=== PATIENT | female | born 1960 | race African-American/Black ===

== ENCOUNTER 2016-10-12 20:50 | Inpatient (IN) ==
[2016-10-12] MEDS ORDERED: MORPHINE IV ONE (21:13)
[2016-10-12] MEDS ORDERED: ZOFRAN IV ONE (21:13)
--- NOTE | 2016-10-12 21:19 | PROVIDER DOCUMENTATION ---
HPI-Abdominal Pain/GI Problem - General Chief Complaint: Abdominal Pain Stated Complaint: abd pain Time Seen by Provider: 10/12/16 21:03 Source: patient Allergies/Adverse Reactions: Patient Allergies Allergy/AdvReac Type Severity Reaction Status Date / Time No Known Allergies Allergy Verified 10/12/16 21:10 Home Medications: Home Medication List Medication Instructions Recorded Confirmed Last Taken Type Amlodipine Besylate 5 mg PO DAILY #30 tablet 09/30/15 10/12/16 Unknown Rx Clonidine HCl 0.1 mg PO TID PRN #30 tablet 09/30/15 10/12/16 Unknown Rx Lisinopril 10 mg PO DAILY #30 tablet 09/30/15 10/12/16 Unknown Rx Lisinopril 40 mg PO DAILY 09/30/15 10/12/16 09/30/15 History Tramadol [Ultram] 50 mg PO Q6H PRN PRN #20 tablet 09/30/15 10/12/16 10/12/16 Rx Docusate Sodium [Colace] 100 mg PO DAILY #10 capsule 10/10/16 10/12/16 Unknown Rx Magnesium Citrate [Citrate of 300 ml PO ONCE #1 bottle 10/10/16 10/12/16 Unknown Rx Magnesia] Meloxicam [Mobic] 15 mg PO DAILY #30 tablet 10/10/16 10/12/16 10/12/16 Rx - History of Present Illness-ABD Nature of Presenting Problems: Pt is 55 y/o F c chief complaint of acute onset epigastric pain that started several days ago but has become worse. Pt was seen at [facility] last night and told she had gas pain. Pt states the pain has significantly worsened today. Pt has had vomiting and is actively vomiting on arrival at the ER. Pt denies any diarrhea, constipation, dysuria. Pt has a h/o htn. On arrival, pt is vomiting. Review of Systems - Adult - REVIEW OF SYSTEMS - ADULT Constitutional: reports: no symptoms reported. denies: chills, fatique Eyes: reports: no symptoms reported. denies: blurred vision, double vision Ears, Nose, Mouth & Throat: reports: no symptoms reported. denies: ear pain, nose pain Cardiovascular: reports: no symptoms reported. denies: chest pain, orthopnea Respiratory: reports: no symptoms reported. denies: cough, shortness of breath Gastrointestinal: reports: see HPI, abdominal pain, nausea, vomiting Genitourinary: reports: no symptoms reported. denies: dysuria, flank pain Musculoskeletal: reports: no symptoms reported. denies: bone pain, joint pain, joint swelling Integumentary: reports: no symptoms reported. denies: itching, rash Neurological: reports: no symptoms reported. denies: numbness, paresthesia Psychiatric: reports: no symptoms reported. denies: anxiety, emotional problems Endocrine: reports: no symptoms reported. denies: cold intolerance, heat intolerance Hematologic/Lymphatic: reports: no symptoms reported. denies: blood clots, low blood count Allergic/Immunologic: reports: no symptoms reported. denies: allergic reactions , food allergy All Other Systems: Reviewed and Negative Past History - Adult - PAST MEDICAL HISTORY-ADULT Review of Records: reports: Old Records Reviewed, Nursing Assessment Review, Medications Reviewed, Social history reviewed & non-contributory. Major Childhood Illnesses: reports: denies history Cardiovascular: reports: HTN Respiratory: reports: denies history Gastrointestinal: reports: denies history Obstetrical/Gynecological: reports: denies history Genitourinary: reports: other (KIDNEY PROBLEMS PER PT) Musculoskeletal: reports: arthritis Neurological: reports: denies history Endocrine/Immune: reports: denies history Other Conditions: reports: denies history - PRIOR SURGERIES/PROCEDURES Surgical/Procedure History: reports: reviewed, not pertinent - IMMUNIZATION STATUS Childhood Immunizations: See Nurse Assessment Flu Vaccine: See Nurse Assessment - FAMILY HISTORY Family History: reviewed, not pertinent - SOCIAL HISTORY Smoking: denies Substance Use: none/never Alcohol Use Frequency: never Living Situation: family Physical Exam-General - PHYSICAL EXAM-ADULT Initial Vital Signs Reviewed: Yes - CONSTITUTIONAL General Appearance: alert, no apparent distress - EYES Eyes: PERRL/EOMI, pink conjunctivae - HEAD, EARS, NOSE, MOUTH & THROAT HENMT: normocephalic/atraumatic, moist mucous membranes, normal ENT inspection - NECK Neck: normal inspection - RESPIRATORY Respiratory: chest non-tender, lungs clear, normal breath sounds - CARDIOVASCULAR Cardiovascular: normal peripheral pulses, regular rate, rhythm - GASTROINTESTINAL (ABDOMEN) Abdominal Exam: soft, guarding, tenderness (epigastric). negative: rebound - LYMPHATIC Lymphatic: no adenopathy - MUSCULOSKELETAL Back Exam: normal inspection, no CVA tenderness, no vertebral tenderness Extremity: normal range of motion, non-tender, normal inspection - SKIN Integumentary: normal color, normal turgor, warm/dry - NEUROLOGIC Neurologic: grossly normal, no motor/sensory deficits - PSYCHIATRIC Psych/Mental Status: normal mood/affect, normal thought content, normal thought process, oriented x 3 Progress - PLAN OF CARE/RESULTS Progress/Plan/Lab Results: Orders Category Date Time Status Saline Loc DIRECTED Care 10/12/16 21:10 Active NPO Diet 10/12/16 21:10 Active AMYLASE [CHEM] Stat Lab 10/12/16 21:10 Uncollected CBC WITH ELECTRONIC DIFF [HEME] Stat Lab 10/12/16 21:10 Uncollected CK PROFILE [SP CHEM] Stat Lab 10/12/16 21:12 Uncollected COMPREHENSIVE METABOLIC PANEL [CHEM] Stat Lab 10/12/16 21:10 Uncollected LIPASE [CHEM] Stat Lab 10/12/16 21:10 Uncollected TEST-URINE [PREG] Stat Lab 10/12/16 21:11 Uncollected TROPONIN T Stat Lab 10/12/16 21:12 Uncollected URINALYSIS W/POSS RFLX CULT-1 [URINALYSIS] Stat Lab 10/12/16 21:10 Uncollected Morphine Med 10/12/16 21:13 Discontinued 4 mg IV NOW ONE Ondansetron [Zofran] Med 10/12/16 21:13 Discontinued 4 mg IV NOW ONE EKG [EKG] Stat Ther 10/12/16 21:12 Ordered Result Diagrams: 10/12/16 20:58 10/12/16 20:58 - REASSESSMENT Reassessment #1 Time Reassessed: 00:53 (Discussed c Dr. Yi (ER MD) who agreed c admission.) - CT/MRI 1 CT Study: Abdomen, Pelvis Impression: Abnormal (Soft tissue hypodensity within the gall bladder c mild surrounding fat stranding. Findings suggesting metastatic bladder cancer. Uterine fibroid. Small indeterminant myometerial L hypodensity - prelim radiology report) - CONSULTS/PCP/HOSPITALIST Notification #1 *Consult/PCP/Hospitalist*: Dr. Donovan (General Surgery) Time Discussed: 00:40 Reason/Comments: Agree c admit to Hospitalist. Will consult in morning. #2 Consult: Dr. Guerrero (Hospitalist) Time Discussed: 00:50 Reason/Comments: Agree c admission. Departure - Departure Time of Disposition Decision: 00:51 DIAGNOSIS: Malignant neoplasm metastatic from bladder Abdominal pain Qualifiers: Abdominal location: unspecified location Qualified Code(s): R10.9 - Unspecified abdominal pain Disposition: ADMITTED INPATIENT 09 Certified Medical Emergency: Emergent Condition: Stable Referrals and Follow-Ups: None,PCP [Primary Care Provider] - - Critical Care Note This patient required my direct & personal management of CC.: No Attestation - Physician/ KAYODE Attestation Patient care was provided by Advanced Practice Provider:: Yes Advanced Practice Provider:: Stu Guerrero Advanced Practice Provider documentation review:: The Mid-level provider documentation, treatment plan and medical decision making was reviewed by the physician who agrees with all treatment and medical decision making by the P.
[2016-10-12 21:20] LABS: MANUAL DIFF NEEDED? NO
[2016-10-12 21:27] LABS: BASO% 0.3 % (0.0-0.8); EOS# 0.18 X1000 (0.0-0.7); EOS% 1.6 % (0.0-10.0); HEMOGLOBIN 13.3 g/dL (12.0-16.0); IMM GRAN# 0.02 X1000 (0.0-0.04); IMM GRAN% 0.2 % (0.0-0.5); LYMPH# 3.02 X1000 (1.2-3.4); LYMPH% 26.5 % (20.5-51.1); MCH 31.7 PG (27-31); MCHC 34.1 g/dL (33-37); MCV 92.9 FL (81-99); MONO# 0.69 X1000 (0.11-0.59); MONO% 6.1 % (1.7-9.3); MPV 9.7 FL (7.4-10.4); NEUT% 65.3 % (42.2-75.2); PLT 368 X1000 (130-400)
[2016-10-12 21:41] LABS: AGAP 17; ALBUMIN 4.4 g/dL (3.5-5.0); ALKALINE PHOSPHATASE 128 U/L (32-104); AMYLASE 44 U/L (20-200); BUN 12 mg/dL (8-22); CALCIUM 9.4 mg/dL (8.8-10.2); CHLORIDE 95 mmol/L (98-107); CK PROFILE 172 U/L (24-173); COSMO 275; GOT 23 U/L (10-30); GPT 20 U/L (10-36); LIPASE 21 U/L (13-60); POTASSIUM 3.7 mmol/L (3.5-5.1); SODIUM 137 mmol/L (136-145); TCO2 25 mmol/L (25-35); TOTAL BILIRUBIN 0.38 mg/dL (0.20-1.00); TOTAL PROTEIN 9.4 g/dL (6.3-8.3)
[2016-10-12 22:53] LABS: URINE CULTURE NEEDED? NO; URINE MICRO REVIEW NEEDED? NO; URINE SOURCE CLEAN CATCH
[2016-10-12 22:54] LABS: BILIRUBIN URINE NEGATIVE (NEGATIVE); BLOOD URINE SMALL (NEGATIVE); COLOR YELLOW; GLUCOSE URINE NEGATIVE (NEGATIVE); LEUKOCYTES URINE NEGATIVE (NEGATIVE); NITRITE URINE NEGATIVE (NEGATIVE); PH URINE 5.5; PROTEIN URINE 100 mg/dL (NEGATIVE); SP GRAVITY URINE 1.022; TURBIDITY URINE CLEAR (CLEAR); UROBILINOGEN URINE NORMAL (NORMAL)
[2016-10-12 22:56] LABS: UR EPITHELIAL CELLS >10 /HPF (<10); URINE BACTERIA 1+ /HPF; URINE RBC <10 /HPF (<10); URINE WBC <10 /HPF (<10)
[2016-10-13] MEDS ORDERED: DILAUDID IV ONE (00:35)
[2016-10-13] MEDS ORDERED: LABETALOL IV ONE (00:48)
[2016-10-13] MEDS ORDERED: CATAPRES PO PRN (03:56)
[2016-10-13] MEDS ORDERED: ZOFRAN IV PRN (03:56)
--- NOTE | 2016-10-13 04:18 | HISTORY AND PHYSICAL ---
CHIEF COMPLAINT: Abdominal pain. HISTORY OF PRESENTING ILLNESS: A 55-year-old female without any significant past medical history presented to the emergency department with 2 days' history of abdominal pain. She states that it was more like a cramping sensation and she was very nauseated and vomited several times. She was evaluated in the ER. She had imaging done which did show suspicion for metastatic bladder cancer. Due to her presenting symptoms, patient will need hospitalization for further management. At the time of my examination, she had denied any headaches, vision changes, fevers, chills, chest pain, shortness of breath, hemoptysis, or any weight changes. PAST MEDICAL HISTORY: None. PAST SURGICAL HISTORY: None. ALLERGIES: No known drug allergies. CURRENT MEDICATIONS: None. SOCIAL HISTORY: She denies smoking, but admits to dipping snuff. No history of alcohol or illicit drug use. FAMILY HISTORY: No history of coronary disease. REVIEW OF SYSTEMS: Twelve point review of systems is listed as in HPI. Other systems negative. PHYSICAL EXAMINATION: GENERAL: Cooperative, friendly female. She is resting more comfortably now. VITAL SIGNS: Temperature 98.4 degrees, pulse 97, respiration 18, blood pressure 193/112. HEENT: Atraumatic, normocephalic. Extraocular movements intact. PERRLA. NECK: Supple. CHEST: Clear to auscultation. CARDIOVASCULAR: Regular rate and rhythm. ABDOMEN: Soft. Diffuse tenderness. EXTREMITIES: No edema. NEURO: She is awake, alert, oriented x3. : No bladder distention. SKIN: Warm. LABORATORIES AND STUDIES: WBC 11.38, hemoglobin 13.3, hematocrit 39.0, platelets 368,000. Sodium 137, potassium 3.7, chloride 95, CO2 25, BUN is 12, creatinine 0.6 glucose is 126. ASSESSMENT: A 55-year-old female without any significant past medical history had presented to the emergency department with 2 days' history of having abdominal pain. The patient had imaging done in the ER which was consistent with metastatic bladder cancer. Subsequently, patient will need hospitalization for further management. ASSESSMENT: 1. Abdominal pain. 2. Metastatic bladder cancer. 3. Hypertension, uncontrolled. PLAN: 1. We will admit patient to medical floor with telemetry. 2. Continue support treatment with IV fluids, antiemetics and pain control. 3. We will have Urology evaluation. 4. Monitor blood pressure. Resume antihypertensive agents. 5. Put patient on DVT prophylaxis with SCDs. 6. Continue to follow and reassess. cc: Samson Guerrero MD
[2016-10-13] MEDS: NS 1,000 ML IV SCH ×2 (04:29→20:37)
[2016-10-13] MEDS: MORPHINE IV PRN ×3 (06:25→20:33)
[2016-10-13] MEDS: PRINIVIL PO SCH (08:54)
[2016-10-13] MEDS ORDERED: NORVASC PO SCH (09:00)
[2016-10-13] MEDS: COLACE PO SCH (09:02)
--- NOTE | 2016-10-13 09:03 | Diag Imaging Result Doc PS360 ---
CT ABD/PELVIS W/ IV CONT ONLY - 10/12/2016 INDICATION: epigastric pain, active vomiting TECHNIQUE: A CT dose reduction protocol was used. COMPARISON: None FINDINGS: The lung bases are grossly clear and the heart size is normal. There is a large enhancing mass in the gallbladder lumen. This measures about 4.1 x 2.6 cm. There is probably mild invasion of the right lateral surface of the gallbladder fossa of the liver. There is also at least one liver metastasis, in the posterior right lobe. There are several suspicious enlarged periportal lymph nodes that are hypoenhancing. There are also some abnormally enlarged anterior phrenic lymph nodes adjacent to the liver surface. There are several omental masses anteriorly measuring up to about 3 cm. The gallbladder is somewhat distended, but there is no biliary dilation. The pancreas, adrenals, spleen, and kidneys are normal. Main portal vein is patent. There is a well-defined enhancing mass at the fundus of the uterus, indeterminate but most likely a uterine fibroid. Urinary bladder and rectum are normal. No bowel obstruction or inflammation. Normal appendix. There are moderate degenerative changes of the spine. No acute or suspicious bony lesion. IMPRESSION: 1. Advanced malignancy, probably arising from the gallbladder, involving the liver, periportal and perihepatic lymph nodes. There are also numerous omental masses. 2. Well-defined nodule in the uterus, most likely a uterine fibroid. Electronically signed by Joe Denis 10/13/2016 9:01 AM
--- NOTE | 2016-10-13 19:08 | CONSULTATION ---
DATE OF CONSULTATION: 10/13/2016 CHIEF COMPLAINT: Right upper quadrant pain. HISTORY: This is a 55-year-old black female who reports a 2-day history of abdominal pain. She denies any trouble with nausea. She has been eating satisfactorily. She says she does not have any significant weight loss. PAST MEDICAL HISTORY: Denies any other past medical history. PAST SURGICAL HISTORY: Denies any previous surgery. MEDICATIONS: Takes no scheduled medications. ALLERGIES: Has no known drug allergies. SOCIAL HISTORY: She denies smoking, denies alcohol usage. FAMILY HISTORY: Pertinent for coronary disease. REVIEW OF SYSTEMS: Negative except for abdominal pain. EXAM: Vital signs: She is afebrile, heart rate 90, respiratory 22, blood pressure 168/74. Neck: No cervical adenopathy. Lungs: Bilateral breath sounds. Heart: Regular rhythm. Abdomen: Soft. She is mildly tender in the right upper quadrant. No masses palpated. Extremities: No peripheral edema. Neuro: She is awake and alert. LABS: White count is 11,400, hemoglobin 13.3, hematocrit 39. Chemistry shows alkaline phosphatase of 128, LFTs are otherwise normal. CT scan suggests possible mass of the gallbladder, possible periportal adenopathy, possible omental metastases. PLAN: Will be to get ultrasound to further delineate the gallbladder before considering her for laparoscopy. cc: Obi Donovan MD
--- NOTE | 2016-10-13 19:29 | CONSULTATION ---
DATE OF CONSULTATION: 10/13/2016 HISTORY OF PRESENT ILLNESS: This patient was admitted through the emergency room with complaints of abdominal pain. While I was consulted for metastatic cancer of the urinary bladder, I believe she has metastatic cancer of the gallbladder to the lymph nodes and liver. The patient has no history suspicious for urinary bladder cancer. She is a tobacco user and has a very slight microscopic hematuria which certainly can be evaluated at some future date. ALLERGIES: None known. PAST MEDICAL HISTORY: Probable gallbladder cancer with metastasis, tobacco use history, the abdominal pain. PAST SURGERIES: None. MEDICATIONS: She came to the hospital unknown historic medications. SOCIAL HISTORY: She is a nonsmoker but uses snuff and continues to do so and has done some long- term. No alcohol history. No illicit drug use. FAMILY HISTORY: Is noncontributory to the source of admission. REVIEW OF SYSTEMS: Head and neck. Poor dental qualities. No heart trouble, no lung trouble. Recent abdominal pain on GI review. Musculoskeletal is negative and urologic is negative. PHYSICAL EXAM: Vitals: Reveal most recent temperature 98.4 degrees, pulse is 90, respiration 22, blood pressure 168/74, she does have some systolic hypertension. O2 saturations are 100% on room air. HEENT: She is with her family at this time. No visible head and neck lumps or masses. Extraocular muscles intact. The patient hears well . Heart: Has a regular rate regular. Lungs: Clear. No respiratory distress. Abdominal Exam: Right upper quadrant tenderness. DATA: Hydropic gallbladder on CT with mass noted in the gallbladder area, lymph node enlargement and a mass in the right lobe of liver apparent. While there is elevation of the floor of the urinary bladder I believe that is a normal extrinsic pressure that I see there but pursuant to that on her admission she did have a small amount of blood in the urine. We are certainly okay with evaluating that but the red cell count was less than 10, certainly I can see her in the office and recheck urinalysis if she is so inclined but at this point the more pressing matter at hand is her gallbladder and probably her life rate limiting step will be the gallbladder with and without cystoscopy in the future. IMPRESSION: So my impressions are that she has metastatic malignancy of the gallbladder to lymph nodes and liver as a most likely diagnosis. There is no history of urinary bladder cancer. She had a nominal amount of microhematuria seen on the dipstick but not evidenced on the red cell count and she has a history of tobacco use. PLAN: If the patient elects to do so I can do a cystoscopy in the office as an outpatient and invited her to followup there with me. I thank you for the consultation. cc: Adrian Merrill, DO
[2016-10-13] MEDS: NORVASC PO SCH (20:27)
--- NOTE | 2016-10-14 01:24 | ED EKG INTERP ---
This chart was entered by Jairo Walker Scribe, acting as scribe for Aditya Yi MD. EKG Interpretation - EKG Time of EKG reading by physician:: 21:50 EKG Read and Signed by:: Aditya Yi EKG Interpretation (*Must complete 3 of following elements*): Normal (No STEMI) Rate: 94 Rhythm: NSR This chart was documented by the indicated scribe, (Jairo Walker Scribe) and accurately reflects the services I performed and decisions made by me, Aditya Yi MD, as attested by the provider's signature.
[2016-10-14 06:23] LABS: MANUAL DIFF NEEDED? NO
[2016-10-14 06:27] LABS: BASO% 0.2 % (0.0-0.8); EOS# 0.08 X1000 (0.0-0.7); EOS% 0.7 % (0.0-10.0); IMM GRAN# 0.03 X1000 (0.0-0.04); IMM GRAN% 0.3 % (0.0-0.5); LYMPH# 2.65 X1000 (1.2-3.4); LYMPH% 24.2 % (20.5-51.1); MCH 31.7 PG (27-31); MCHC 33.3 g/dL (33-37); MONO# 0.82 X1000 (0.11-0.59); MONO% 7.5 % (1.7-9.3); MPV 9.5 FL (7.4-10.4); NEUT% 67.1 % (42.2-75.2); PLT 298 X1000 (130-400); RBC 3.79 XMIL (4.2-5.4)
[2016-10-14 06:42] LABS: AGAP 15; BUN 11 mg/dL (8-22); CHLORIDE 100 mmol/L (98-107); COSMO 280; POTASSIUM 3.6 mmol/L (3.5-5.1); SODIUM 141 mmol/L (136-145); TCO2 26 mmol/L (25-35)
--- NOTE | 2016-10-14 09:03 | Diag Imaging Result Doc PS360 ---
EXAM: US ABDOMEN-COMPLETE HISTORY: gallbladder mass TECHNIQUE: COMPARISON: A CT from 10/12/2016 FINDINGS: Normal pancreatic head and body. The pancreatic tail is obscured. Normal proximal aorta. The mid and distal aorta are obscured. Inferior vena cava is poorly seen. Hypodense area inferiorly in the right lobe of the liver is not identified on the ultrasound. There is a 3.7 x 4.9 cm mass within the gallbladder. The gallbladder wall is mildly thickened. The common bile duct measures 3 mm. Normal right kidney. No hydronephrosis. Normal spleen. No ascites. Normal left kidney. No hydronephrosis. IMPRESSION: Gallbladder mass highly suspicious for malignancy. Electronically signed by Harlan Vila 10/14/2016 9:01 AM
[2016-10-14] MEDS: COLACE PO SCH (09:53)
[2016-10-14] MEDS: PRINIVIL PO SCH (09:53)
[2016-10-14] MEDS: NORVASC PO SCH ×2 (09:54→20:39)
[2016-10-14] MEDS: NS 1,000 ML IV SCH (09:59)
--- NOTE | 2016-10-14 15:38 | PROGRESS NOTE ---
DATE: 10/14/2016 SUBJECTIVE: Patient reports feeling fine. No abdominal pain today. No nausea, vomiting. OBJECTIVE: Vital Signs: Temperature 98.8, heart rate 74, respiratory rate 14, blood pressure 155/54, O2 saturation 93% on room air. General: This is a 55-year-old, female lying in bed, in no acute distress. HEENT: Head is normocephalic, atraumatic. Anicteric sclerae and pale conjunctivae. Mucous membranes moist. Neck: Supple. No JVD noted. No carotid bruit. No lymphadenopathy. No thyromegaly. Cardiovascular: S1, S2 heard. No murmurs, gallops, or rubs. Regular rate and rhythm. Respiratory: Clear bilaterally to auscultation. No work of breathing or using accessory muscles. Abdomen: Soft, nontender to palpation. Bowel sounds present. No organomegaly. Extremities: No clubbing, cyanosis, or edema. Peripheral pulses present in both legs. Neurologic: Patient alert oriented x3. Moves 4 extremities. Cranial nerves 2-12 grossly normal. LABORATORY DATA: Reviewed CBC and BMP. ASSESSMENT AND PLAN: 1. Abdominal pain. 2. Metastatic-like cancer. 3. Gallbladder cancer. 4. Hypertension. PLAN: 1. Patient was admitted to the hospital because of abdominal pain and CT of the abdomen and pelvis did show this finding in the bladder, so also for right upper quadrant abdominal pain, an ultrasound of the abdomen was ordered, which basically shows the gallbladder cancer. At this point, what we are going to do is to consult Hematology/Oncology to what will be the next step in the management of this patient and to complete a workup for diagnosis. 2. Further recommendations to follow according to the clinical situation of the patient and input from subspecialty involved in the care of this patient. cc: Yusef Moore MD
[2016-10-15] MEDS: NS 1,000 ML IV SCH ×2 (03:46→03:49)
--- NOTE | 2016-10-15 07:59 | EKG Report ---
Test Performed on : 10/12/2016 9:50:50 PM Test Reason : EPIGASTRIC PAIN Blood Pressure : / mmHG Vent. Rate : 094 BPM Atrial Rate : 094 BPM P-R Int : 158 ms QRS Dur : 086 ms QT Int : 380 ms P-R-T Axes : 048 007 012 degrees QTc Int : 475 ms Normal sinus rhythm. Normal ECG When compared with ECG of 30-SEP-2015 15:33, Nonspecific T wave abnormality now evident in Inferior leads Unconfirmed Result
[2016-10-15] MEDS: NORVASC PO SCH ×2 (09:32→20:42)
[2016-10-15] MEDS: COLACE PO SCH (09:32)
[2016-10-15] MEDS: PRINIVIL PO SCH (09:32)
--- NOTE | 2016-10-15 10:22 | Diag Imaging Result Doc PS360 ---
EXAM: CT THORAX W/CONTRAST HISTORY: Gallbladder Mass, RUQ Pain TECHNIQUE: Dose reduction protocol COMPARISON: None. FINDINGS: No pleural effusions. No cardiomegaly. No thoracic aortic aneurysm or dissection. There are small mediastinal lymph nodes with several tiny calcified subcarinal and hilar lymph nodes. There are several scattered calcified granuloma. Minimal increased markings in the right middle lobe and lower lobes which may simply be atelectasis or fibrosis. No consolidation. No bronchiectasis. No lung mass identified. IMPRESSION: 1.Prior granulomatous infection 2.Minimal increased interstitial markings believed to be atelectasis or fibrosis Electronically signed by Harlan Vila 10/15/2016 10:20 AM
--- NOTE | 2016-10-15 14:02 | PROGRESS NOTE ---
DATE: 10/15/2016 SUBJECTIVE: The patient is feeling well. She has no complaint. No abdominal pain. Denies having any fever or chills. The patient was seen and examined lying comfortably in her bed. OBJECTIVE: Vital signs: Blood pressure 150/112, pulse of 72, respirations 14, temperature 98.6 degrees, saturating 91% in room air. General appearance: Obese black female in no acute distress. HEENT: Anicteric. Clear conjunctivae. Neck: Supple. No JVD. No bruit. Cardiovascular: S1, S2. Normal rate and rhythm. No murmur, rubs or gallops. Pulmonary: Clear to auscultation bilaterally. GI: Soft, nontender, nondistended. Normoactive bowel sounds. Musculoskeletal: No clubbing, cyanosis, or edema. LABORATORY: She does not have hematology or Chemistry today. ASSESSMENT AND PLAN: This is a 55-year-old admitted to the hospital for abdominal pain. CT scan showed a mass in her gallbladder. 1. Gallbladder mass concerning for malignancy. She has a mass in the liver. General surgery was consulted. They want to get an ultrasound to delineate the masses before they proceed with the laparoscopic cholecystectomy. Abdominal ultrasound that showed a gallbladder mass highly suspicious for malignancy. We are waiting for General surgery it to decide what to do next. Most likely, cholecystectomy with biopsy of the liver mass while in there but will defer to the General surgery to decide. If General surgery will be unable to do it, we will consider Interventional radiology to biopsy the liver for cytology. Oncology is also following. 2. Hypertension. Continue the patient on Norvasc and lisinopril. 3. Deep venous thrombosis prophylaxis. The patient is ambulating. Put her on SCDs for now. CODE STATUS: The patient is a full code.
--- NOTE | 2016-10-16 04:56 | HISTORY AND PHYSICAL ---
ADDENDUM: The patient was admitted for abdominal pain. I was given preliminary report of the CT scan by midlevel provider and I could not verify official radiology report at time of admission. However patient does not have any metastatic bladder cancer. However she does have advanced malignancy arising from the gallbladder. PLAN: As listed in the previous H and P. cc: Samson Guerrero MD MTDD
[2016-10-16 06:00] LABS: MANUAL DIFF NEEDED? NO
[2016-10-16 06:12] LABS: BASO% 0.2 % (0.0-0.8); EOS# 0.18 X1000 (0.0-0.7); EOS% 1.7 % (0.0-10.0); HEMATOCRIT 34.3 % (37.0-47.0); HEMOGLOBIN 11.6 g/dL (12.0-16.0); IMM GRAN# 0.03 X1000 (0.0-0.04); IMM GRAN% 0.3 % (0.0-0.5); LYMPH# 3.21 X1000 (1.2-3.4); LYMPH% 29.4 % (20.5-51.1); MCH 31.6 PG (27-31); MCHC 33.8 g/dL (33-37); MCV 93.5 FL (81-99); MONO# 0.74 X1000 (0.11-0.59); MONO% 6.8 % (1.7-9.3); MPV 9.5 FL (7.4-10.4); NEUT% 61.6 % (42.2-75.2); PLT 319 X1000 (130-400); RBC 3.67 XMIL (4.2-5.4)
[2016-10-16 07:03] LABS: AGAP 12; BUN 7 mg/dL (8-22); CALCIUM 8.8 mg/dL (8.8-10.2); CHLORIDE 101 mmol/L (98-107); COSMO 279; POTASSIUM 3.7 mmol/L (3.5-5.1); SODIUM 141 mmol/L (136-145); TCO2 28 mmol/L (25-35)
[2016-10-16] MEDS: PRINIVIL PO SCH (09:19)
[2016-10-16] MEDS: COLACE PO SCH (09:19)
[2016-10-16] MEDS: NORVASC PO SCH ×2 (09:19→21:05)
--- NOTE | 2016-10-16 09:45 | PROGRESS NOTE ---
DATE: 10/16/2016 SUBJECTIVE: The patient is feeling well. She ready to go home. She is scheduled for the endoscopy with possible ERCP today. No fever. No chills. No nausea, vomiting, or diarrhea. No abdominal pain. OBJECTIVE: Vital Signs: Blood pressure 129/68, pulse of 72, respirations 20, temperature 98.1 degrees, saturation 97%. General Appearance: Obese, black female in no acute distress. HEENT: Anicteric sclerae. Clear conjunctivae. Neck: Supple. No JVD. No bruits. Cardiovascular: S1 and S2. Normal rate and rhythm. No murmur, rubs, or gallops. Pulmonary: Clear to auscultation bilaterally. GI: Soft, nontender, nondistended. Normoactive bowel sounds. Musculoskeletal: No clubbing, cyanosis, or edema. Laboratory: For today, white count of 10.9, hemoglobin 11.6, hematocrit of 34.3, platelets of 319,000. Chemistry: Sodium 141, potassium of 3.7, chloride 101, bicarb 28, BUN 7, creatinine 0.6, glucose of 88. ASSESSMENT AND PLAN: This is a 55-year-old, black female admitted to the hospital for abdominal pain and was found to have a mass in her gallbladder. 1. Gallbladder mass. General surgery is following. They are probably going to go in to do the ERCP or an endoscopy today with trying to get a tissue biopsy. Oncology is also following. We will continue to follow the results and recommendations from the consultants mentioned. 2. Hypertension. We will continue Norvasc and lisinopril. 3. Code status. The patient is a full code.
[2016-10-16] MEDS ORDERED: PEPCID ONE (16:20)
[2016-10-16] MEDS ORDERED: LR 0 ML ONE (16:22)
[2016-10-16] MEDS ORDERED: MARCAINE 0.25% PF/EPI 1:200,000 ONE (16:22)
[2016-10-16] MEDS ORDERED: SODIUM CHLORIDE 0.9% ONE (16:22)
--- NOTE | 2016-10-16 16:50 | CONSULTATION ---
DATE OF CONSULTATION: 10/15/2016 REFERRING PHYSICIAN: Dr. Davies. REASON FOR REFERRAL: Gallbladder mass suspicious for malignancy. HISTORY OF PRESENT ILLNESS: Ms. Lupe Cordon is a very pleasant 55-year-old woman with a past medical history of hypertension who presented to [facility] ER with complaints of right upper quadrant pain for the past 2 days. She states that she initially took 2 Aleve which relieved the pain but it returned and she decided to come to the ER for further evaluation. Upon further workup, she was found to have a mass on her gallbladder highly suspicious for malignancy. Dr. Donovan has been consulted for further recommendations. Hematology/Oncology service was placed on consult to provide further workup and treatment options. PAST MEDICAL HISTORY: Hypertension. PAST SURGICAL HISTORY: None. FAMILY HISTORY: The patient reports her mother of cancer but she is unsure which type. SOCIAL HISTORY: The patient reports dipping snuff but denies smoking, alcohol or illicit drug use. ALLERGIES: No known drug allergies. MEDICATIONS: As per medication sheet. REVIEW OF SYSTEMS: As per HPI. Otherwise, a 12-point review of systems was negative. PHYSICAL EXAMINATION: General: The patient appears to be in no apparent distress. Vital Signs: Blood pressure 150/112, pulse 72, respirations 14, temperature 98.6 degrees Fahrenheit, O2 saturation 91% on room air. HEENT: Head normocephalic, atraumatic. Mucosa is pink and moist. Pupils reactive to light. Oropharynx clear. Neck: Supple. No lymphadenopathy or thyromegaly. Cardiovascular: S1, S2. Regular rate and rhythm. No murmurs noted. Respiratory: Breath sounds clear to auscultation bilaterally. No rhonchi, rales or wheezing noted. Abdomen: Soft, nontender, nondistended. Positive for bowel sounds. Extremities: No evidence of edema, DVT or cyanosis. Skin: No rashes or lesions noted. Neurological: No focal neurologic deficits. ASSESSMENT: Right upper quadrant pain with gallbladder mass suspicious for malignancy. PLAN: 1. We will obtain a CT of the chest for further staging. We will also obtain a CA-19-[address] Donovan has been consulted and we are awaiting his recommendations. Further recommendations will depend on the results of the above workup. 2. Hypertension. We agree with placing the patient on antihypertensive as per the hospitalist. Further workup and treatment options will depend upon the patient's hospital course as well as response to current therapy. Thank you for this consult and allowing us to take part in the care this patient. We will follow along with you. Dictated by ADARSH Brandon for Jessica Ambrosio MD cc: Jessica Ambrosio MD
--- NOTE | 2016-10-16 17:49 | OPERATIVE NOTE ---
PROCEDURE DATE: 10/16/2016 PROCEDURE: Diagnostic laparoscopy with biopsy of omental mass and biopsy of the peritoneum. SURGEON: Obi Donovan MD. RN INFUSION: Sil. PREOPERATIVE DIAGNOSIS: Possible metastatic disease. POSTOP DIAGNOSIS: Possible metastatic disease. INDICATIONS: This is a 55-year-old black female who presents with right upper quadrant pain. CT suggests a mass in the gallbladder with possible metastasis in the omentum and even in the right lobe of the liver. She now presents for diagnostic laparoscopy for biopsy. DESCRIPTION OF PROCEDURE: Satisfactory general endotracheal anesthesia was achieved. The abdomen was prepped and draped in a sterile fashion. We anesthetized the skin at the umbilicus, made a small incision there, and introduced the 5 trocar into the abdominal cavity. We insufflated through this trocar. This was done under direct visualization. We introduced another 5 trocar in the left upper quadrant, another 5 trocar in the left mid abdomen. We noticed an omental mass that we are able to biopsy with biopsy forceps. We identified another mass more medial toward the falciform ligament. We identified the omentum being stuck to the fundus of the gallbladder which we did not separate because it was intimately attached. We also identified what appeared to be a peritoneal implant which we did biopsy. We felt this represented metastatic disease did not feel that any further resection was indicated. We got biopsies for diagnostic purposes. We then desufflated and removed our trocars. We closed the skin at each incision with 4-0 Polysorb subcuticular stitches. Sterile OpSite were applied. She tolerated it well. Was sent to the recovery room in satisfactory condition. cc: Obi Donovan MD
[2016-10-16] MEDS ORDERED: ZOFRAN ONE (17:51)
[2016-10-16] MEDS ORDERED: DIPRIVAN 1% ONE (17:51)
[2016-10-16] MEDS ORDERED: FENTANYL ONE ×2 (17:51)
[2016-10-17] MEDS: MORPHINE IV PRN ×2 (03:11→13:55)
[2016-10-17 06:40] LABS: MANUAL DIFF NEEDED? NO
[2016-10-17 06:48] LABS: BASO% 0.2 % (0.0-0.8); EOS# 0.13 X1000 (0.0-0.7); EOS% 1.3 % (0.0-10.0); HEMATOCRIT 32.9 % (37.0-47.0); LYMPH# 2.81 X1000 (1.2-3.4); LYMPH% 27.3 % (20.5-51.1); MCH 31.3 PG (27-31); MCHC 33.4 g/dL (33-37); MCV 93.7 FL (81-99); MONO# 0.68 X1000 (0.11-0.59); MONO% 6.6 % (1.7-9.3); MPV 9.3 FL (7.4-10.4); NEUT% 64.6 % (42.2-75.2); PLT 344 X1000 (130-400); RBC 3.51 XMIL (4.2-5.4)
[2016-10-17 07:08] LABS: AGAP 14; BUN 6 mg/dL (8-22); CALCIUM 8.6 mg/dL (8.8-10.2); CHLORIDE 100 mmol/L (98-107); COSMO 276; POTASSIUM 3.7 mmol/L (3.5-5.1); SODIUM 140 mmol/L (136-145); TCO2 26 mmol/L (25-35)
[2016-10-17] MEDS: COLACE PO SCH (09:24)
[2016-10-17] MEDS: NORVASC PO SCH (09:24)
[2016-10-17] MEDS: PRINIVIL PO SCH (09:24)
[2016-10-17] MEDS ORDERED: ROBINUL ONE (09:35)
[2016-10-17] MEDS ORDERED: QUELICIN (DOSE) ONE (09:35)
[2016-10-17] MEDS ORDERED: LABETALOL (DOSE) ONE (09:35)
[2016-10-17] MEDS ORDERED: NEOSTIGMINE ONE (09:35)
[2016-10-17] MEDS ORDERED: ZEMURON ONE (09:35)
[2016-10-17] MEDS ORDERED: REGLAN ONE (09:35)
[2016-10-17] MEDS ORDERED: XYLOCAINE-MPF 2% ONE (09:35)
[2016-10-17] MEDS ORDERED: LR 1,000 ML ONE (09:36)
[2016-10-17 13:11] VITALS: BP 143/74
--- NOTE | 2016-10-17 13:11 | PROGRESS NOTE ---
DATE: 10/17/2016 SUBJECTIVE: The patient is feeling well. She has no complaint. No nausea and no vomiting. She had the exploratory laparotomy yesterday for biopsy of omentum. No bleeding, tolerating clear. OBJECTIVE: Vital Signs: Blood pressure 126/67, pulse of 76, respirations 20, temperature 98.2 degrees, saturating 95% room air. General Appearance: Well-developed, well-nourished black female in no acute distress. HEENT: Anicteric. Clear conjunctivae. Neck: Supple. No JVD. No bruit. Cardiovascular: S1, S2. Normal rate and rhythm. No murmur, rubs, or gallops. Pulmonary: Clear to auscultation bilaterally. GI: Soft, nontender, and nondistended. Bandage in the place where the incisions were. Extremities: No clubbing, cyanosis, or edema. LABORATORY: White count 10.29, hemoglobin 11.10, hematocrit 32.9, platelets 344,000. Chemistry 140, potassium 3.7, chloride 100, bicarbonate 26, BUN 6, creatinine 0.6, and glucose of 89. ASSESSMENT AND PLAN: This is a 56-year-old admitted to the hospital for what appeared to be a gallbladder mass. Apparently it is on the outside of the gallbladder. The mass was in omentum that sticks to the gallbladder per the exploratory laparoscopy report by Dr. Donovan. Biopsy was done. The patient tolerated the procedure well. Oncology is following. CA-19-9 was normal. Biopsy still pending. The patient is doing well. Advance her diet. We will discharge the patient home and have her follow with Dr. Ambrosio of Oncology, with the biopsy result. The patient can go home today.
--- NOTE | 2016-10-17 16:37 | DISCHARGE SUMMARY ---
ADMISSION DATE: 10/13/2016 DISCHARGE DATE: 10/17/2016 CONSULTATIONS: 1. Obi Donovan MD with General Surgery. 2. Adrian Merrill DO with Urology. PERTINENT PROCEDURES: 1. Abdominopelvic CT showed advanced malignancy probably arising from the gallbladder involving the liver, perihepatic lymph nodes and numerous omental masses. Well- defined nodule in the uterus most likely a uterine fibroid. 2. Chest CT showed prior granulomatosis infection, minimal increased interstitial markings believed to be atelectasis and/or fibrosis. DIAGNOSTIC: 1. Laparoscopy with biopsy of omental mass and biopsy of the peritoneum performed by Dr. Obi Donovan. 2. Abdominal ultrasound showed gallbladder mass highly suspicious for malignancy. DISCHARGE DIAGNOSES: 1. Gallbladder mass status post laparoscopic biopsy performed by Dr. Obi Donovan. Followed by Dr. Jessica Ambrosio. Biopsy results are still pending. Her CA 19-9 was normal. 2. Hypertension. Continue Norvasc and lisinopril. HOSPITAL COURSE: Ms. Cordon is a 55-year-old female who carries a past medical history of hypertension presented to the emergency room with 2 days of abdominal pain. She states it was a cramping sensation. She was very nauseated and vomited several times. She was evaluated in the ED. Imaging was done which was suspicious for metastatic gallbladder cancer. The patient was admitted to the medical floor and continued with supportive treatment with IV fluids, antiemetics and pain control, with a consultation for General Surgery as well as Hematology/ Oncology. She did undergo a laparoscopic biopsy. Apparently it was on the outside of the gall bladder. The mass was in the omentum that sticks to the gallbladder. Per Dr. Donovan's report, a biopsy was done and is still pending. The patient tolerated the procedure well. Her CA 19-9 was normal. The patient clinically was doing well. Her diet was advanced. She will be discharged home to follow up with Dr. Ambrosio with Oncology for her biopsy results. The patient can return to the ED for any worsening of symptoms. DISCHARGE TIME: 30 minutes. Dictated by ADARSH Centeno for Luis Miguel Zabala MD Addendum: I personally evaluated and examined the patient in conjunction to the [employer] and agreed with his assessments and disposition [facility]ITAL[facility]
== END 2016-10-17 17:51 | disposition home or self-care (01) ==
LOC: ED 20:50 → 3N 10-13 03:31 → SUATTDRO 10-13 03:31 → 3N 10-13 03:50
PROVIDERS: ATTEND Internal Medicine

== ENCOUNTER 2016-11-03 20:06 | Inpatient (IN) ==
[2016-11-03 20:48] LABS: MANUAL DIFF NEEDED? NO
[2016-11-03 21:01] LABS: BASO% 0.2 % (0.0-0.8); EOS# 0.14 X1000 (0.0-0.7); EOS% 0.9 % (0.0-10.0); HEMATOCRIT 35.9 % (37.0-47.0); HEMOGLOBIN 12.1 g/dL (12.0-16.0); IMM GRAN# 0.07 X1000 (0.0-0.04); IMM GRAN% 0.5 % (0.0-0.5); LYMPH# 1.98 X1000 (1.2-3.4); LYMPH% 13.4 % (20.5-51.1); MCH 30.5 PG (27-31); MCHC 33.7 g/dL (33-37); MCV 90.4 FL (81-99); MONO# 0.86 X1000 (0.11-0.59); MONO% 5.8 % (1.7-9.3); MPV 9.9 FL (7.4-10.4); NEUT% 79.2 % (42.2-75.2); PLT 389 X1000 (130-400); RBC 3.97 XMIL (4.2-5.4)
[2016-11-03 21:10] LABS: AGAP 17; ALBUMIN 3.1 g/dL (3.5-5.0); ALKALINE PHOSPHATASE 463 U/L (32-104); AMYLASE 34 U/L (20-200); BUN 7 mg/dL (8-22); CALCIUM 9.3 mg/dL (8.8-10.2); CHLORIDE 95 mmol/L (98-107); COSMO 275; GOT 115 U/L (10-30); GPT 147 U/L (10-36); LIPASE 25 U/L (13-60); POTASSIUM 3.4 mmol/L (3.5-5.1); SODIUM 138 mmol/L (136-145); TCO2 26 mmol/L (25-35); TOTAL BILIRUBIN 6.49 mg/dL (0.20-1.00); TOTAL PROTEIN 7.9 g/dL (6.3-8.3)
[2016-11-03] MEDS ORDERED: ZOFRAN IV ONE (21:34)
[2016-11-03] MEDS ORDERED: MORPHINE IV ONE (21:34)
--- NOTE | 2016-11-03 21:40 | PROVIDER DOCUMENTATION ---
HPI-Abdominal Pain/GI Problem - General Chief Complaint: Abdominal Pain Stated Complaint: RLQ abd pain Time Seen by Provider: 11/03/16 20:13 Source: patient Allergies/Adverse Reactions: Patient Allergies Allergy/AdvReac Type Severity Reaction Status Date / Time No Known Allergies Allergy Verified 11/03/16 20:43 Home Medications: Home Medication List Medication Instructions Recorded Confirmed Last Taken Type Amlodipine Besylate 5 mg PO DAILY #30 tablet 09/30/15 10/26/16 Unknown Rx Clonidine HCl 0.1 mg PO TID PRN #30 tablet 09/30/15 10/26/16 Unknown Rx Lisinopril 40 mg PO DAILY 09/30/15 10/26/16 09/30/15 History Meloxicam [Mobic] 15 mg PO DAILY #30 tablet 10/10/16 10/26/16 10/12/16 Rx Tramadol [Ultram] 50 mg PO Q6H PRN PRN #20 tablet 10/17/16 10/26/16 Unknown Rx Hydrocodone/Acetaminophen [[place] 1 each PO Q4-6H PRN PRN #20 tablet 10/26/16 Unknown Rx 10-325 Tablet] Promethazine [Phenergan] 25 mg PO Q6H PRN PRN #20 tablet 10/26/16 Unknown Rx - History of Present Illness-ABD Nature of Presenting Problems: 56 y/o BF presents to the ED with c/o abd. pain x 2 weeks. Pt has been seen for this before, but states worse today. States lower abdominal pain. Denies any nausea/vomiting/diarrhea. States unable to eat. Pain is 10/10 and does not radiate. Hx of adenocarcinoma, and has not followed up with Dr. Ambrosio for further evaluation. Review of Systems - Adult - REVIEW OF SYSTEMS - ADULT Constitutional: reports: no symptoms reported. denies: chills, fever Eyes: reports: no symptoms reported. denies: blurred vision, double vision Ears, Nose, Mouth & Throat: reports: no symptoms reported. denies: ear pain, nose pain Cardiovascular: reports: no symptoms reported. denies: chest pain, palpitations Respiratory: reports: no symptoms reported. denies: dyspnea on exertion, shortness of breath Gastrointestinal: reports: see HPI, abdominal pain, poor appetite. denies: constipation, diarrhea, nausea, vomiting Genitourinary: reports: no symptoms reported. denies: dysuria, frequency, flank pain Musculoskeletal: reports: no symptoms reported. denies: joint pain, joint swelling Integumentary: reports: no symptoms reported. denies: nail changes, rash Neurological: reports: no symptoms reported. denies: numbness, paresthesia Psychiatric: reports: no symptoms reported Endocrine: reports: no symptoms reported. denies: cold intolerance, heat intolerance Hematologic/Lymphatic: reports: no symptoms reported. denies: easy bruising, prolonged bleeding Allergic/Immunologic: reports: no symptoms reported All Other Systems: Reviewed and Negative Past History - Adult - PAST MEDICAL HISTORY-ADULT Review of Records: reports: Nursing Assessment Review, Medications Reviewed Major Childhood Illnesses: reports: denies history Cardiovascular: reports: HTN Respiratory: reports: denies history Gastrointestinal: reports: cancer (recent dx of adenocarcinoma) Obstetrical/Gynecological: reports: denies history Genitourinary: reports: other (KIDNEY PROBLEMS PER PT) Musculoskeletal: reports: arthritis Neurological: reports: denies history Endocrine/Immune: reports: denies history Other Conditions: reports: denies history - PRIOR SURGERIES/PROCEDURES Surgical/Procedure History: reports: recent surgery (laproscopic of omentum peritoneum) - IMMUNIZATION STATUS Childhood Immunizations: See Nurse Assessment Flu Vaccine: See Nurse Assessment - FAMILY HISTORY Family History: reviewed, not pertinent - SOCIAL HISTORY Smoking: denies Physical Exam-General - PHYSICAL EXAM-ADULT Initial Vital Signs Reviewed: Yes - CONSTITUTIONAL General Appearance: alert, moderate distress, obese - EYES Eyes: pink conjunctivae - HEAD, EARS, NOSE, MOUTH & THROAT HENMT: normocephalic/atraumatic, moist mucous membranes - NECK Neck: normal inspection - RESPIRATORY Respiratory: lungs clear, normal breath sounds. negative: crackles, rales, rhonchi, stridor, wheezing - CARDIOVASCULAR Cardiovascular: regular rate, rhythm. negative: bradycardia, tachycardia - GASTROINTESTINAL (ABDOMEN) Abdominal Exam: soft, tenderness (generalized, worse in lower abdomen). negative: normal bowel sounds (decreased), distended, guarding, rigid, Mahoney's sign - MUSCULOSKELETAL Back Exam: normal inspection, no CVA tenderness Extremity: normal range of motion - SKIN Integumentary: normal color, normal turgor - NEUROLOGIC Neurologic: negative: aphasia - PSYCHIATRIC Psych/Mental Status: normal mood/affect, normal thought content, normal thought process, oriented x 3 Progress - PLAN OF CARE/RESULTS Progress/Plan/Lab Results: Vital Signs - 8 hr 11/03/16 20:07 Temperature 98.6 F Pulse Rate 98 H Respiratory Rate 20 Blood Pressure 182/112 O2 Sat by Pulse Oximetry 100 Laboratory Results - last 24 hr 11/03/16 11/03/16 20:35 20:35 WBC 14.78 H RBC 3.97 L Hgb 12.1 Hct 35.9 L MCV 90.4 MCH 30.5 MCHC 33.7 RDW Std Deviation 11.9 Plt Count 389 MPV 9.9 Immature Gran % (Auto) 0.5 Neut % (Auto) 79.2 H Lymph % (Auto) 13.4 L Coleman % (Auto) 5.8 Eos % (Auto) 0.9 Baso % (Auto) 0.2 Immature Gran # (Auto) 0.07 H Neut # (Auto) 11.70 H Lymph # (Auto) 1.98 Coleman # (Auto) 0.86 H Eos # (Auto) 0.14 Baso # (Auto) 0.03 Sodium 138 Potassium 3.4 L Chloride 95 L Carbon Dioxide 26 Anion Gap 17 BUN 7 L Creatinine 0.7 Estimated GFR/1.73 m2 > 60 BUN/Creatinine Ratio 10 Glucose 123 H Calculated Osmolality 275 Calcium 9.3 Total Bilirubin 6.49 H AST 115 H ALT 147 H Alkaline Phosphatase 463 H Total Protein 7.9 Albumin 3.1 L Globulin 4.8 Albumin/Globulin Ratio 0.6 Amylase 34 Lipase 25 Orders Category Date Time Status Saline Loc DIRECTED Care 11/03/16 20:25 Active NPO Diet 11/03/16 20:[address] ABD/PELVIS W/ IV CONT ONLY [CT] Stat Exams 11/03/16 21:34 Ordered AMYLASE [CHEM] Stat Lab 11/03/16 20:35 Completed CBC WITH ELECTRONIC DIFF [HEME] Stat Lab 11/03/16 20:35 Completed COMPREHENSIVE METABOLIC PANEL [CHEM] Stat Lab 11/03/16 20:35 Completed LIPASE [CHEM] Stat Lab 11/03/16 20:35 Completed URINALYSIS W/POSS RFLX CULT-1 [URINALYSIS] Stat Lab 11/03/16 20:25 Uncollected Morphine Med 11/03/16 21:34 Discontinued 4 mg IV NOW ONE Ondansetron [Zofran] Med 11/03/16 21:34 Discontinued 4 mg IV NOW ONE Result Diagrams: 11/03/16 20:35 11/03/16 20:35 - CT/MRI 1 CT Study: Abdomen, Pelvis Impression: See EMR Report (1. Progression of metastatic disease likely from gallbladder cancer. -per Dr. Garrison ([facility] - CONSULTS/PCP/HOSPITALIST Notification #1 *Consult/PCP/Hospitalist*: Dr. Guerrero Time Discussed: 00:00 Reason/Comments: zheng hepatis, gallbladder CA with mets, ascites Consult Disposition: Admit Departure - Departure Date of Disposition Decision: 11/04/16 Time of Disposition Decision: 00:01 DIAGNOSIS: Adenocarcinoma Abdominal pain Qualifiers: Abdominal location: unspecified location Qualified Code(s): R10.9 - Unspecified abdominal pain Ascites Qualifiers: Ascites type: other type Qualified Code(s): R18.8 - Other ascites Disposition: ADMITTED INPATIENT 09 Certified Medical Emergency: Emergent Condition: Stable Referrals and Follow-Ups: None,PCP [Primary Care Provider] - - Critical Care Note This patient required my direct & personal management of CC.: No Attestation - Physician/ KAYODE Attestation Patient care was provided by Advanced Practice Provider:: Yes Advanced Practice Provider:: Stephanie Kennedy Advanced Practice Provider documentation review:: The Mid-level provider documentation, treatment plan and medical decision making was reviewed by the physician who agrees with all treatment and medical decision making by the MLP.
[2016-11-04] MEDS ORDERED: ZOFRAN IV ONE (00:45)
[2016-11-04] MEDS ORDERED: NS 1,000 ML IV ONE (00:45)
[2016-11-04] MEDS ORDERED: MORPHINE IV ONE (00:45)
[2016-11-04 01:08] LABS: URINE CULTURE NEEDED? NO; URINE SOURCE CLEAN CATCH
[2016-11-04 01:11] LABS: BILIRUBIN URINE MODERATE (NEGATIVE); BLOOD URINE TRACE (NEGATIVE); COLOR YELLOW; GLUCOSE URINE NEGATIVE (NEGATIVE); LEUKOCYTES URINE NEGATIVE (NEGATIVE); NITRITE URINE NEGATIVE (NEGATIVE); PROTEIN URINE 50 mg/dL (NEGATIVE); TURBIDITY URINE CLEAR (CLEAR); UROBILINOGEN URINE 6 mg/dL (NORMAL)
[2016-11-04 01:12] LABS: URINE MICRO REVIEW NEEDED? YES
[2016-11-04 01:21] LABS: UR EPITHELIAL CELLS <10 /HPF (<10); URINE BACTERIA NEGATIVE /HPF; URINE RBC <10 /HPF (<10); URINE WBC <10 /HPF (<10)
[2016-11-04 01:23] LABS: SP GRAVITY URINE > 1.030
[2016-11-04 01:24] LABS: URINE CASTS NONE SEEN; URINE CRYSTALS NONE SEEN; URINE SMALL ROUND CELLS NONE SEEN
[2016-11-04] MEDS ORDERED: POTASSIUM CHLORIDE 20 MEQ/SWI 20 MEQ/100 ML IVPB IV ONE (02:36)
[2016-11-04 02:37] LABS: INR 1.16; PROTIME 12.3 Seconds (9.2-11.7); PTT 30.8 Seconds (22.0-36.0)
[2016-11-04] MEDS ORDERED: NS 1,000 ML IV SCH (02:56)
[2016-11-04] MEDS: PROTONIX IV SCH (03:09)
[2016-11-04] MEDS: SODIUM CHLORIDE 0.9% INJ SCH (03:09)
[2016-11-04] MEDS ORDERED: MIRALAX PO PRN (04:04)
[2016-11-04] MEDS: MORPHINE IV PRN ×4 (04:26→23:17)
[2016-11-04] MEDS: NORVASC PO SCH ×2 (04:27→10:01)
--- NOTE | 2016-11-04 05:58 | HISTORY AND PHYSICAL ---
DATE AND TIME OF HISTORY AND PHYSICAL: 11/04/2016 at 01:00. ONCOLOGIST: Dr. Ambrosio. CHIEF COMPLAINT: Nausea, vomiting and abdominal pain. HISTORY OF PRESENT ILLNESS: Ms Cordon is a 56-year-old female who presented to the ER [facility] with complaints of abdominal pain, decreased appetite and some nausea and vomiting. She was recently admitted to the hospital and was discharged on 10/17/2016. During this admission she was initially admitted for similar symptoms. 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 She was discharged and was supposed to follow up with Dr. Ambrosio. The patient states at this time she has not had her appointment yet for follow up with Dr. Ambrosio. She states that for 2 weeks she has had a decreased appetite. She complains of abdominal pain in the right upper quadrant, epigastric area as well as lower abdomen just inferior to the umbilicus. She describes this pain as a sharp type pain that is intermittent. She states that bending over or pulling her knees up to her chest does make the pain slightly better as well as pain medicines. She states that she has not been unable to keep any food or fluids down. Everything she eats comes right back up. She denies any hematemesis. She also denies any diarrhea though states that she is constipated and her last bowel movement was approximately 1 week ago though denies any previous symptoms of hematochezia or melena. She denies any fever or body aches but states that she may have had chills because she has had hot and cold spells. She denies any dizziness, headaches, chest pain, shortness of breath, dysuria or urinary frequency. She denies any pain, numbness or tingling in extremities though does report some intermittent swelling in her bilateral ankles. Upon evaluation in the ER, the patient was found to have abdominal pain as reported. She was also found to have some mild leukocytosis with a white blood cell count of 14.78. Along with this, her liver enzymes were elevated. A CT abdomen and pelvis was obtained which did show that the patient has progression of metastatic disease likely from gallbladder cancer. The patient did have a most recent CT abdomen and pelvis on 10/12/2016 which showed advanced malignancy probably arising from the gallbladder involving the liver and periportal and perihepatic lymph nodes. There are also numerous omental masses as well. The CT that she had performed tonight does show previous findings as mentioned as well as now her gallbladder mass is extending into the pancreas as well. We will admit the patient at this time for further treatment and evaluation of her metastatic gallbladder cancer as well as her nausea, vomiting and mild fluid depletion. REVIEW OF SYSTEMS: A 12 point review of systems was conducted with the patient and all were negative except for pertinent positives mentioned in above HPI. PAST MEDICAL HISTORY: 1. Hypertension. 2. Hyperlipidemia. 3. Anxiety. 4. Depression. PAST SURGICAL HISTORY: 1. The patient did have a recent laparoscopy biopsy of her omental mass and a biopsy of the peritoneum performed by Dr. Obi Donovan upon her last admission. 2. Tonsillectomy. SOCIAL HISTORY: The patient denies any past or present alcohol or illicit drug use. She denies any cigarette tobacco use though does report that she uses smokeless tobacco stating that she dips regularly. FAMILY HISTORY: The patient's mother has a history of heart disease, diabetes mellitus and cancer though the patient could not state to which type of cancer she had. The patient 's father patient's father did in a drowning accident. She is unaware of any medical problems. She does have siblings though they are all healthy she states. ALLERGIES: The patient reports no known allergies. HOME MEDICATIONS: 1. Amlodipine 10 mg p.o. daily. 2. Paroxetine controlled release 25 mg p.o. daily. 3. Colace 100 mg p.o. daily. DIAGNOSTIC DATA: Laboratory results: White blood cell count 14.78, hemoglobin 12.1, hematocrit 35.9, platelet count is 389,000. PT 12.3, INR 1.16, PTT is 30.8. Sodium is 138 , potassium 3.4, chloride 95, bicarbonate 26, BUN 7, creatinine 0.7, glucose 123, calcium 9.3, total bilirubin is 6.49, AST 115, ALT 147, alkaline phosphatase is 463, albumin is 3.1, amylase 34 , lipase 25. Urinalysis was obtained via clean catch, was positive for protein, ketones, trace blood, moderate bilirubin though was negative for leukocytes, white blood cells or bacteria. CT abdomen and pelvis as mentioned above did show findings of progression of metastatic disease likely from the gallbladder. The gallbladder mass is now extending into the pancreas and zheng hepatis. There is also increased omental metastatic deposits. Multiple pathologic perigastric lymph nodes have increased in size as well as a right anterior costophrenic angle adenopathy has increased as well. PHYSICAL EXAMINATION: VITAL SIGNS: Temperature 99 degrees, heart rate 84, respirations 16, blood pressure 175/82. Oxygen saturation is 95% room air. GENERAL: Ms. Cordon is a 56-year-old female who was resting in the ER stretcher. She was in no acute distress. She was awake, alert and able to answer questions appropriately. HEENT: Head is atraumatic, normocephalic. Pupils are equal, round, reactive to light, were 3 mm bilaterally and brisk. Sclerae are jaundiced. Subconjunctival was pink. Oral mucosa is moist. Oropharynx is clear. NECK: Supple. Trachea midline. CARDIOVASCULAR: Patient has normal S1, S2. No murmurs, gallops, or rubs appreciated with a regular rate and rhythm. PULMONARY: Patient has symmetrical chest expansion bilaterally. Lung sounds clear to auscultation in bilateral full pop. ABDOMEN: Soft. Does not appear to be distended though the patient does have a protuberant abdomen noted. She was tender upon palpation in the right upper quadrant as well as just inferior to the umbilicus. Bowel sounds were present in all 4 quadrants, were slightly hypoactive. EXTREMITIES: No cyanosis or clubbing noted. Pulse, motor and sensory were intact in all extremities. Pedal pulses were 3+ bilaterally. Capillary refill is less than 3. The patient did have some slight swelling noted to bilateral ankles and feet though she states this is something that she has frequently and is not any worse at this time than it has previously been. INTEGUMENTARY: Patient's skin color is normal for her race. It is dry and intact. No lesions or sores noted. NEUROLOGICAL: Patient is alert, oriented x4. Cranial nerves 2-12 are grossly intact. ASSESSMENT AND PLAN: 1. Metastatic gallbladder cancer. The patient does have CT findings with progression of metastatic disease likely from her gallbladder cancer. For further management of this, we will place a consult with Dr. Ambrosio and we will await her evaluation and further recommendations. We will also monitor the patient's liver function tests. We will repeat a CMP in the morning. 2. Nausea, vomiting. We have placed the patient on Zofran and Phenergan as needed. We have placed the patient on a regular diet to advance as tolerated. 3. Mild fluid volume depletion. This is likely secondary to the patient's decreased appetite and reported nausea and vomiting. We will continue with gentle fluid resuscitation with normal saline at 100 mL/h x 1 bag. 4. Hypertension. We will continue the patient's Norvasc. 5. Depression. We will continue with the patient's Paxil. 6. Hypokalemia. We have given the patient a one time dose of 20 mEq of IV potassium. We will recheck a CMP in the morning. The patient will be placed on the medical floor with telemetry. She will have vital signs every 8 hours. GI prophylaxis will be provided with Protonix 40 mg IV q.24 hours. DVT prophylaxis provided with Lovenox 40 mg subcutaneously q.24 hours. We will do strict intake and output. The patient has reported that she has been constipated and not having a bowel movement in [address] orders for Colace as well as MiraLAX. Further orders and recommendations pending hospital course, diagnostic studies and physician evaluation. Dictated by ADARSH Oviedo for Samson Guerrero MD cc: Samson Guerrero MD MTDD
[2016-11-04 08:23] LABS: MANUAL DIFF NEEDED? NO
[2016-11-04 08:35] LABS: BASO% 0.3 % (0.0-0.8); EOS# 0.13 X1000 (0.0-0.7); EOS% 0.9 % (0.0-10.0); HEMATOCRIT 33.1 % (37.0-47.0); HEMOGLOBIN 11.1 g/dL (12.0-16.0); IMM GRAN# 0.06 X1000 (0.0-0.04); IMM GRAN% 0.4 % (0.0-0.5); LYMPH# 2.41 X1000 (1.2-3.4); LYMPH% 15.8 % (20.5-51.1); MCH 30.4 PG (27-31); MCHC 33.5 g/dL (33-37); MCV 90.7 FL (81-99); MONO# 1.06 X1000 (0.11-0.59); MPV 9.8 FL (7.4-10.4); NEUT% 75.6 % (42.2-75.2); PLT 323 X1000 (130-400); RBC 3.65 XMIL (4.2-5.4)
--- NOTE | 2016-11-04 08:43 | Diag Imaging Result Doc PS360 ---
EXAM: CT ABD/PELVIS W/ IV CONT ONLY INDICATION: abd. Pain, leukocytosis COMPARISON: 10/12/2016 FINDINGS: During the fairly short interval, the known gallbladder mass has increased substantially in size. It now measures up to 7.0 x 5.4 cm axially (4.1 x 2.6 cm previously). In addition to this, essentially the entire gallbladder wall is now thickened and nodular, which was not the case previously. There is also been a significant increase in the periportal lymphadenopathy. These enlarged nodes have become confluent forming a mass that measures up to 8.0 x 4.8 cm axially. There is certainly mass effect on the adjacent pancreas and there may be parenchymal invasion. The metastatic lesion involving the right hepatic lobe has also increased in size measuring 3.1 x 3.1 cm axially (2.4 x 2.3 cm previously). There has been substantial worsening of the malignant omental implants. For reference, the largest omental implant anterior to the gastric antrum and left hepatic lobe measures up to 4.9 x 4.4 cm axially (2.7 x 2.5 cm previously). There are multiple other omental implants as well as enlarged lymph nodes. Essentially all are larger than the previous study. There is worsening intrahepatic biliary dilatation. There is now trace free fluid layering in the pelvis. There is a stable heterogeneous nodular uterus most compatible with a fibroid uterus. Otherwise, the abdomen and pelvis are essentially stable as compared to the fairly recent previous study. IMPRESSION: 1.Significant progression of the known gallbladder mass, lymphadenopathy,, metastatic liver lesion, and omental implants in the short interval since the previous study. 2.Slight worsening of intrahepatic biliary dilatation indicating biliary obstruction at the zheng hepatis. Electronically signed by Stu Shukla 11/04/2016 8:40 AM
[2016-11-04 08:52] LABS: AGAP 15; ALBUMIN 2.9 g/dL (3.5-5.0); ALKALINE PHOSPHATASE 421 U/L (32-104); BUN 5 mg/dL (8-22); CALCIUM 8.6 mg/dL (8.8-10.2); CHLORIDE 98 mmol/L (98-107); COSMO 273; GOT 102 U/L (10-30); GPT 126 U/L (10-36); POTASSIUM 3.7 mmol/L (3.5-5.1); SODIUM 138 mmol/L (136-145); TCO2 25 mmol/L (25-35); TOTAL BILIRUBIN 6.23 mg/dL (0.20-1.00); TOTAL PROTEIN 7.2 g/dL (6.3-8.3)
[2016-11-04] MEDS ORDERED: PRINIVIL PO SCH (09:00)
[2016-11-04] MEDS ORDERED: NORVASC PO SCH (09:00)
[2016-11-04] MEDS: COREG PO SCH ×2 (10:01→20:21)
[2016-11-04] MEDS: PAXIL CR PO SCH (10:01)
[2016-11-04] MEDS: COLACE PO SCH (10:01)
--- NOTE | 2016-11-04 21:26 | Diag Imaging Result Doc PS360 ---
EXAM: HEAD W/O CONTRAST HISTORY: encephalopathy TECHNIQUE: Dose reduction protocol COMPARISON: 09/23/2013 FINDINGS: No parenchymal hemorrhage. No epidural or subdural hematoma. No subarachnoid hemorrhage. No mass identified on this noncontrasted exam. No hydrocephalus. No sinus opacification. IMPRESSION: No hemorrhage. Negative brain CT without contrast. A preliminary report was given at 6:19 PM Electronically signed by Harlan Vila 11/04/2016 9:24 PM
--- NOTE | 2016-11-04 22:01 | CONSULTATION ---
DATE OF CONSULTATION: 11/04/2016 PRIMARY CARE PROVIDER: None. ONCOLOGIST: Dr. Jessica Ambrosio M.D. PRIMARY SURGEON: Dr. Obi Donovan M.D. INDICATION FOR CONSULTATION: 1. Nausea with vomiting. 2. Abdominal pain. 3. Leukocytosis. 4. Probable biliary obstruction. 5. Known metastatic gallbladder cancer. HISTORY OF PRESENT ILLNESS: The patient is a 56-year-old female who was admitted 10/13/2016 with nausea with vomiting and abdominal pain. CT scan of the abdomen and pelvis was remarkable for a large mass at the gallbladder. She underwent an omental biopsy to evaluate an omental mass that was also present. She was found to have metastatic gallbladder cancer. She was evaluated by Dr. Jessica Ambrosio service and was scheduled to go outpatient chemotherapy in the next few weeks. Unfortunately, prior to receiving chemotherapy she returned to the emergency room with nausea with vomiting, abdominal pain and decreased appetite. She states that she is angry because she expected that her gallbladder would be taken out and she is adamant that she does not want to discuss anything unless I am able to take her gallbladder out. She is moving around in the bed and complains of mild right upper quadrant pain. She denies nausea with vomiting since admission but reports nausea, vomiting at home. She stated that she was not interested in answering other questions. PAST MEDICAL HISTORY: 1. Hypertension. 2. Hyperlipidemia. 3. Anxiety. 4. Depression. 5. Metastatic gallbladder cancer with metastasis to the liver, lymph nodes and omentum. 6. Nausea with vomiting since the onset of illness. PAST SURGICAL HISTORY: 1. 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 2. Tonsillectomy. SOCIAL HISTORY: Obtained per the chart. There is no history of alcohol, tobacco or recreational drug use in the medical record. There is a note that she occasionally uses smokeless tobacco and dips on a regular basis. FAMILY HISTORY: According to the medical record is remarkable for heart disease , diabetes and cancer but she is uncertain as to what kind of cancer. MEDICATION ALLERGIES: None. HOME MEDICATIONS: 1. Amlodipine. 2. Paroxetine. 3. Colace. PHYSICAL EXAM: Vital signs: Her blood pressure is 177/79, pulse of 82, respiration 20, temperature of 98.2 degrees. HEENT: Remarkable in that she is jaundiced. Her sclerae are pink and appear normal. Her oropharyngeal mucosal membranes moist. Pulmonary: Lungs are clear to auscultation with normal expiratory effort. Cardiovascular: Exam reveals regular rate and rhythm with no murmurs, gallops, or rubs. Abdominal Exam: Reveals normoactive bowel sounds. The abdomen is soft but slightly protuberant. She denies tenderness on exam except in the right upper quadrant which was mild. Extremities: Bilaterally are negative for cyanosis, clubbing, or edema. Neurologic: The patient is agitated and anxious. She refuses to answer many questions stating that if I cannot take her gallbladder out then I need to find someone who can. OBJECTIVE DATA: Reveals a hemoglobin of 11.1 with hematocrit of 33.1 and a white count of 15.21. She has 323,000 platelets. Sodium is 138, potassium 3.7, chloride 98, CO2 of 25 , BUN 5, creatinine 0.5 with a glucose of 95. Calcium is 8.6, total bilirubin 6.23, AST 102, ALT 127, alkaline phosphatase 421, total protein 7.2 and albumin 2.9. IMPRESSION: 1. Metastatic gallbladder cancer. 2. Biliary obstruction. 3. Jaundice. 4. Elevated liver function tests. 5. Advanced metastatic disease with progression since her last admission. RECOMMENDATION: 1. Ideally, one would like to perform ERCP to decompress the hepatobiliary tree. However, it is difficult to assess her functional status and I am not confident that her mental status is appropriate to give consent. Therefore, I will defer any additional recommendations until such time that I can meet with Dr. Acevedo and Dr. Ambrosio. 2. Continue Protonix 40 mg q.24 hours now. 3. Continue MiraLAX as there is documentation of some mild constipation in the chart. 4. Additional recommendations to follow once we have had an opportunity to meet with Dr. Ambrosio and Dr. Acevedo. cc: Stephanie Acevedo MD [facility]ITALJoan
[2016-11-04] MEDS: NS 1,000 ML IV SCH (23:17)
[2016-11-05] MEDS: NS 1,000 ML IV SCH (01:48)
[2016-11-05] MEDS: MORPHINE IV PRN ×3 (03:26→12:48)
[2016-11-05] MEDS: PROTONIX IV SCH (03:26)
[2016-11-05] MEDS: SODIUM CHLORIDE 0.9% INJ SCH (03:26)
[2016-11-05 06:41] LABS: AGAP 14; ALBUMIN 2.8 g/dL (3.5-5.0); ALKALINE PHOSPHATASE 460 U/L (32-104); BUN 5 mg/dL (8-22); CALCIUM 8.6 mg/dL (8.8-10.2); CHLORIDE 94 mmol/L (98-107); COSMO 267; GOT 96 U/L (10-30); GPT 110 U/L (10-36); POTASSIUM 3.6 mmol/L (3.5-5.1); SODIUM 135 mmol/L (136-145); TCO2 27 mmol/L (25-35); TOTAL BILIRUBIN 6.89 mg/dL (0.20-1.00); TOTAL PROTEIN 6.9 g/dL (6.3-8.3)
[2016-11-05 06:42] LABS: HEMATOCRIT 34.3 % (37.0-47.0); HEMOGLOBIN 11.3 g/dL (12.0-16.0); MCH 30.7 PG (27-31); MCHC 32.9 g/dL (33-37); MCV 93.2 FL (81-99); RBC 3.68 XMIL (4.2-5.4)
[2016-11-05] MEDS: COREG PO SCH ×2 (08:32→19:52)
[2016-11-05] MEDS: PAXIL CR PO SCH (08:32)
[2016-11-05] MEDS: COLACE PO SCH (08:32)
[2016-11-05] MEDS: NORVASC PO SCH (08:33)
[2016-11-05] MEDS: TYLENOL PO PRN (11:07)
--- NOTE | 2016-11-05 14:09 | PROGRESS NOTE ---
DATE: 11/05/2016 SUBJECTIVE: Ms. Cordon presented on 11/04/2016. She is a patient of Dr. Ambrosio's. She was complaining of nausea, vomiting, abdominal pain. This is a 56-year-old who presented to the emergency room with complaints of abdominal pain, decreased appetite, some nausea and vomiting. Recently admitted to the hospital and discharged on 10/17/2016. During this admission, initially admitted with similar symptoms. 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 Was discharged and was supposed to follow up with Dr. Ambrosio. At this time she has not had her appointment yet. She states that for 2 weeks she has had decreased appetite. Complains of abdominal pain, right upper quadrant and epigastric pain, as well as lower abdominal discomfort just inferior to emboli. She describes the pain as sharp type pain. It is intermittent but pretty severe pain. In the ER she was found to have abdominal pain as reported. CT of the abdomen and pelvis obtained did show that the patient had progression of metastatic disease from her gallbladder cancer. Did have most recent CT abdomen and pelvis 10/12/2016. That showed advanced malignancy probably arising from gallbladder involving the liver and periportal and perihepatic lymph nodes. Also some omental masses as well. A CT scan was performed when she was admitted and appears to have a gallbladder mass extending into the pancreas as well. Other past medical history, hypertension, hyperlipidemia, anxiety, depression. OBJECTIVE: General: Today she says she is feeling a little better. Abdominal pain is a little less but the morphine only holds the pain for a couple of hours. Vital signs: Temp 98.6 degrees, pulse 77, respirations 16, blood pressure 171/89. HEENT: Pupils are equal, round. Lungs: Clear in all lung pop. Cardiovascular: Regular rhythm and rate without murmur or S3. Abdomen: Soft. Skin: Warm and dry. : Urine output over 6 L. LAB: Reviewed from this morning. White count 16,680, hematocrit 34, platelet count 319,000. Sodium 135, potassium 3.6, chloride 94, BUN 5, creatinine 0.5, AST 96, ALT 110, alkaline phosphatase 460. ASSESSMENT AND PLAN: 1. Dr. Carolyn Hummel was consulted. Ideally would like to perform ERCP, decompress the biliary tree. However, it is difficult to assess her functional status. I am not confident of her mental status, appropriate to give consent. Metastatic gallbladder cancer with increased pain. We will try Dilaudid for the pain. 2. Continue Protonix IV. 3. Nutrition, poor appetite, not much p.o. intake. REVIEW OF HER ORDERS: I do not know that I see city anything to change at this point except the Dilaudid. cc: Rigoberto Castillo MD
[2016-11-05] MEDS: DILAUDID IV PRN ×2 (17:04→21:54)
[2016-11-05] MEDS: DURAGESIC 25 MICROGM/HR PATCH TD SCH (17:08)
[2016-11-06] MEDS: COREG PO SCH ×3 (00:23→20:11)
[2016-11-06] MEDS: DILAUDID IV PRN ×5 (01:41→23:44)
[2016-11-06] MEDS: PROTONIX IV SCH (05:47)
[2016-11-06] MEDS: SODIUM CHLORIDE 0.9% INJ SCH (05:47)
[2016-11-06 06:10] LABS: HEMATOCRIT 33.9 % (37.0-47.0); HEMOGLOBIN 11.5 g/dL (12.0-16.0); MCH 30.9 PG (27-31); MCHC 33.9 g/dL (33-37); MCV 91.1 FL (81-99); MPV 10.1 FL (7.4-10.4); RBC 3.72 XMIL (4.2-5.4)
[2016-11-06 06:15] LABS: AGAP 14; ALBUMIN 2.8 g/dL (3.5-5.0); ALKALINE PHOSPHATASE 573 U/L (32-104); BUN 7 mg/dL (8-22); CALCIUM 8.7 mg/dL (8.8-10.2); CHLORIDE 91 mmol/L (98-107); COSMO 264; GOT 105 U/L (10-30); GPT 112 U/L (10-36); POTASSIUM 3.8 mmol/L (3.5-5.1); SODIUM 133 mmol/L (136-145); TCO2 28 mmol/L (25-35); TOTAL BILIRUBIN 7.98 mg/dL (0.20-1.00); TOTAL PROTEIN 7.1 g/dL (6.3-8.3)
--- NOTE | 2016-11-06 10:51 | PROGRESS NOTE ---
DATE: 11/06/2016 SUBJECTIVE: She is getting some relief of pain but it still hits her pretty hard. OBJECTIVE: Temperature 98.3 degrees, pulse 84, respirations 16, blood pressure 179/94. CVP: Less than 6 cm. Lungs are clear in all lung pop. Cardiovascular: Regular rhythm and rate without murmur or S3. Abdomen soft. Urine output was almost 2 L. LABORATORY DATA: White count elevated at 17,930. Hematocrit 33, platelet count 310,000. Sodium 133, potassium 3.8, chloride 91. BUN 7, creatinine 0.5. Calcium 8.7. AST 105, ALT 112, alkaline phosphatase 573. ASSESSMENT AND PLAN: 1. Metastatic gallbladder cancer. 2. Biliary obstruction. 3. Jaundice. 4. Elevated liver function tests. 5. Advanced metastatic disease; progressed since her last admission. I would like to pursue ERCP. She was having a good deal of pain with I suspected some spasm and pain around the biliary sphincters. She is asking for something for her bowels, and we will continue the MiraLAX and try some milk of magnesia. She is on Protonix 40 mg q. 24 hours. I would like to see what the plans would be. Of note, she had a CT of her head on 11/04/2016. There is no hemorrhage. Negative brain. CT of the abdomen and pelvis on 11/03/2016: Significant progression of known gallbladder mass, lymphadenopathy, metastatic liver lesions, omental implants. This is a significant increase since her previous study which was on 10/12/2016. cc: Rigoberto Castillo MD
[2016-11-06] MEDS: NORVASC PO SCH (11:00)
--- NOTE | 2016-11-06 12:42 | CONSULTATION ---
DATE OF CONSULTATION: 11/05/2016 REASON FOR CONSULTATION: Metastatic gallbladder cancer. CONSULT REQUESTED BY: Dr. Rigoberto Castillo. HISTORY OF PRESENT ILLNESS: Ms. Cordon is a 56-year-old -[place] female, who is known to us as we previously saw her in the hospital. During that hospitalization, she was found to have metastatic gallbladder cancer with liver and lymph node metastasis. The patient was supposed to follow up with us as an outpatient, but has yet to do so, due to continuing complaints of abdominal pain as well as right upper quadrant epigastric pain. The patient has been into the ER a couple of times since her last hospitalization. The patient has yet to start any treatment for her gallbladder cancer. PAST MEDICAL HISTORY: 1. Hypertension. 2. Hyperlipidemia. 3. Anxiety/depression. PAST SURGICAL HISTORY: 1. The patient had a laparoscopic procedure in order to have biopsies of her omentum and peritoneum. 2. Tonsillectomy. SOCIAL HISTORY: The patient denies alcohol or illicit drug use. She does use smokeless tobacco products as well as dips regularly. FAMILY HISTORY: Positive in her mother for heart disease, diabetes mellitus, as well as cancer, but the patient cannot recall which type of cancer. She reports her siblings are healthy. Her father from a drowning accident. REVIEW OF SYSTEMS: As per the HPI. All other systems are negative and noncontributory. PHYSICAL EXAMINATION: Vital Signs: Temperature 98.2 degrees, heart rate 82, blood pressure 190/91, O2 saturation 92% on room air. General: This is an -[place] female lying in the hospital bed. She does not appear to be in any acute distress. Head: Normocephalic, atraumatic. Eyes: Pupils appear to be equal, round, and reactive. Ears, nose, throat, neck, and mouth: Oral mucosa is normal. Trachea is midline. Gross auditory acuity is intact. Neck: Supple. Cardiovascular: S1-S2 heard. No murmurs, gallops, rubs appreciated. Regular rate and rhythm. Respiratory: Chest is clear to auscultation bilaterally. Normal respiratory effort. Gastrointestinal: Abdomen is somewhat protuberant. Some mild epigastric tenderness. No rebound tenderness. No guarding noted. Positive bowel sounds. Musculoskeletal: No obvious bony abnormalities. Extremities: Some trace bilateral extremity edema. Neurologic : The patient is alert and oriented. No focal motor deficits. LABORATORY DATA AND STUDIES: White blood cell count 16.68, hemoglobin 11.3, hematocrit is 34.3, platelets 319,000. Sodium 135, potassium 3.6, chloride 94, CO2 of 27. BUN 5, creatinine 0.5. Total bilirubin is 6.89 and AST 96, ALT is 110. Alkaline phosphatase 460. She had a head CT, which showed no hemorrhage. Negative brain CT without contrast. Abdominal and pelvis CT: Significant progression of known gallbladder mass, lymphadenopathy, metastatic liver lesions, and omental implants in the short interval since her previous study which was from 10/12/2016. Slightly increase of the intrahepatic biliary dilatation indicating biliary obstruction at the zheng hepatis. ASSESSMENT AND PLAN: 1. Metastatic gallbladder cancer. The patient has yet to start treatment. She has been unable to make it to our office to discuss initiating treatment. She is now inquiring about a possible second opinion. The patient's pain will need to be controlled and her acute issues will need to be resolved. We agree with a second opinion which the patient can be referred to once she is discharged. Patient is also welcome to come to our office and discuss palliative chemotherapy. 2. Abdominal pain. The patient does have some obstruction on her CT scan. Gastroenterology has been consulted. Continue bowel rest and pain management. We will go ahead and start a Fentanyl patch to use, to continue to reaccess pain and adjust pain medications as needed. 3. Nausea and vomiting. Bowel rest. Continue antiemetics. Monitor closely. I want to thank you for consulting us on Ms. Cordon while she is at [facility]. We will continue to follow along and adjust our treatment plan per her hospital course. Dictated by REN Caceres for Jessica Ambrosio MD I have examined the patient, reviewed the chart and agree with above A/P. We will work on pain control, relief of obstruction and discuss palliative treatment once she is an outpatient. Jessica Ambrosio MD cc: Jessica Ambrosio MD [facility]
[2016-11-06] MEDS ORDERED: DIPRIVAN 1% 500 MG/50 ML BOTTLE ONE (15:50)
[2016-11-06] MEDS ORDERED: GLUCAGON ONE (16:51)
[2016-11-06] MEDS ORDERED: DIPRIVAN 1% ONE (17:42)
[2016-11-06] MEDS ORDERED: FENTANYL ONE (17:44)
--- NOTE | 2016-11-06 17:49 | PROGRESS NOTE ---
DATE: 11/06/2016 SUBJECTIVE: Ms. Cordon reports that her pain is about the same. She has some questions in regards to her cancer diagnosis. OBJECTIVE: Vital Signs: Temperature 98.3 degrees, pulse rate 84, respirations 16, blood pressure 179/94, O2 saturations 97% on room air. LABORATORY STUDIES: White blood cells 17.93 hemoglobin 11.5, hematocrit 33.9, platelet count 310,000. Sodium 133, potassium 3.8, chloride 91, CO2 is 28, BUN 7, creatinine 0.5. Bilirubin is 7.98, AST is 105, ALT is 112, alkaline phosphatase is 573. PHYSICAL EXAMINATION: Cardiovascular: S1-S2 heard. No murmurs, gallops, rubs appreciated. Respiratory: Chest clear to auscultation bilaterally. Normal respiratory effort. Gastrointestinal: Abdomen is protuberant. She has some diffuse tenderness. Extremities: No cyanosis or clubbing noted. She does have some trace bilateral extremity edema. ASSESSMENT AND PLAN: 1. 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 We did discuss the patient's diagnosis with her today. Explained that her pain is likely due to her obstruction. We discussed how we can discuss palliative chemotherapy once her acute issues have resolved. 2. Biliary obstruction. Patient reports that she is due for a possible stent placement with Dr. Hummel later today. Pain management is our ultimate goal, and causing decompression by stenting her biliary tree to prevent the biliary obstruction is recommended if Dr. Hummel decides to proceed. 3. Abdominal pain. Overall, stable. Obstruction as per above. She is currently receiving Dilaudid. We did start the patient on a fentanyl patch. Further management as per Dr. Hummel. 4. Nausea, vomiting. Continue antiemetics. 5. Hypertension. Continue current management per the primary team. Dictated by REN Caceres for Jessica Ambrosio MD cc: Jessica Ambrosio MD I have examined the patient and reviewed the chart. Agree with above A/P. Relieve obstruction. Control pain. OUtpatient second opinion at [facility] requested by patient. Jessica FLOYDD
[2016-11-06] MEDS: PAXIL CR PO SCH (17:58)
[2016-11-06] MEDS: COLACE PO SCH (17:58)
--- NOTE | 2016-11-06 18:36 | OPERATIVE NOTE ---
PROCEDURE DATE: 11/06/2016 PROCEDURE: ERCP, sphincterotomy common bile duct dilation, and stent placement. SCOPE: Olympus duodenal scope. MEDICATION: MAC as per Anesthesia. PREOPERATIVE DIAGNOSIS: Obstructive jaundice. POSTOPERATIVE DIAGNOSES: Was stricture common bile duct, dilated intrahepatic duct. The common bile duct dilated and stent placed. HISTORY: This 56-year-old, female who has a history of gallbladder cancer has presented with obstructive jaundice most likely from external compression of the common bile duct. ERCP was done for therapeutic purposes. PROCEDURE: Informed consent was obtained from the patient. Procedure risks, benefits, alternatives were explained in layman's terms. Risks of, but not limited to bleeding, perforation, aspiration pneumonia, and pancreatitis was explained. The risk of pancreatitis was explained which could be severe enough, leading to prolonged hospitalization and even . She understood and agreed to proceed. The patient was brought to the endoscopy unit and was premedicated as per Anesthesia. After adequate sedation, while she was lying in left lateral position the duodenoscope was introduced into the posterior pharynx and advanced manually into the esophagus. Through the esophagus, it was advanced into the stomach. Stomach was insufflated. Pylorus identified. Scope was then passed through the pylorus into the duodenal bulb, and then 2nd part duodenum where the major papilla was identified which was swollen and prominent. There was a hint of bile noted at the ampulla. Using the sphincterotome, the common bile duct was preferentially cannulated. After deep cannulation, contrast injected. Cholangiogram obtained which revealed a long stricture in the distal 2/3rd of the common bile duct. The stricture was tight and smooth suggestive of external compression. Intrahepatic and proximal biliary ducts were dilated. After the wire was passed across the stricture into the proximal biliary system, I proceeded with the sphincterotomy. After adequate sphincterotomy, cylinder dilator was used and the common bile duct was dilated up to 10-Malian. After 60 seconds of dilation I went ahead and placed a 9 cm long, 10-Malian plastic stent in the common bile duct traversing the strictured part. Good drainage was noted. The scope was then withdrawn. Patient tolerated the procedure well. No complications noted. Patient was then transferred to the recovery area in a stable condition. IMPRESSION: Smooth stricture distal common bile duct most likely from external compression. Sphincterotomy done, common bile duct dilated and stent placed without any difficulty. RECOMMENDATION: Patient will be started back on her regular diet and further plans regarding chemotherapy and treatment will be made as per Dr. Hartmann and Dr. Ambrosio. cc: MD Matt Pulido MD Heather Shah, MD
[2016-11-06] MEDS: TYLENOL PO PRN (22:10)
[2016-11-07 05:36] LABS: HEMATOCRIT 32.2 % (37.0-47.0); HEMOGLOBIN 10.7 g/dL (12.0-16.0); MCH 30.7 PG (27-31); MCHC 33.2 g/dL (33-37); MCV 92.3 FL (81-99); RBC 3.49 XMIL (4.2-5.4)
[2016-11-07] MEDS: SODIUM CHLORIDE 0.9% INJ SCH (05:41)
[2016-11-07] MEDS: PROTONIX IV SCH (05:41)
[2016-11-07] MEDS: DILAUDID IV PRN ×5 (05:41→21:42)
[2016-11-07 05:55] LABS: AGAP 15; ALBUMIN 2.7 g/dL (3.5-5.0); ALKALINE PHOSPHATASE 543 U/L (32-104); BUN 9 mg/dL (8-22); CALCIUM 8.8 mg/dL (8.8-10.2); CHLORIDE 94 mmol/L (98-107); COSMO 270; GOT 70 U/L (10-30); GPT 88 U/L (10-36); POTASSIUM 3.8 mmol/L (3.5-5.1); SODIUM 136 mmol/L (136-145); TCO2 27 mmol/L (25-35); TOTAL BILIRUBIN 3.37 mg/dL (0.20-1.00); TOTAL PROTEIN 7.1 g/dL (6.3-8.3)
--- NOTE | 2016-11-07 07:46 | Diag Imaging Result Doc PS360 ---
EXAM: ERCP-BILIARY AND PANCREATIC INDICATION: Obstructive jaundice COMPARISON: None. FINDINGS: Four spot fluoroscopic images were provided, which were performed during ERCP and apparent biliary stent placement by Dr. Horton. On these limited images, there appears to be focal stenosis at the superior common hepatic duct and there is at least mild dilation of intrahepatic bile ducts. Before placement of the stent, the common bile duct is poorly opacified. Please correlate with live fluoroscopic imaging. IMPRESSION: As above. Please correlate with live fluoroscopic imaging. Electronically signed by Stu Shukla 11/07/2016 7:44 AM
[2016-11-07] MEDS ORDERED: XYLOCAINE-MPF 2% ONE (08:19)
[2016-11-07] MEDS: PAXIL CR PO SCH (08:51)
[2016-11-07] MEDS: COLACE PO SCH (08:51)
[2016-11-07] MEDS: NORVASC PO SCH (08:52)
[2016-11-07] MEDS: COREG PO SCH ×2 (08:52→21:42)
[2016-11-07] MEDS: ZOFRAN IV PRN (10:10)
--- NOTE | 2016-11-07 12:53 | PROGRESS NOTE ---
DATE: 11/07/2016 SUBJECTIVE: She states she is still having quite a bit of pain, almost every hour. She is asking that we go up on the pain medicine. She wants something for bowels as well. She feels like she is constipated. OBJECTIVE: Vital signs: Temp 99.1 degrees, pulse 78, respirations 16, blood pressure 154/82. Lungs: Clear in all lung pop. Cardiovascular: Regular rhythm and rate without murmur or S3. Abdomen: Soft. Skin: Warm and dry. Intake and output: Urine output 1800 mL. LAB: White count 17,040 which is pretty much what it has been, hematocrit 32, platelet count 295,000. Sodium 136, potassium 3.8, chloride 94, BUN 9, creatinine 0.6. Liver functions are maybe slowly coming down. AST is down to 70, ALT 88, alkaline phosphatase is at 543. ASSESSMENT AND PLAN: Dr. Horton performed an ERCP yesterday. There is stricture of the common bile duct, dilated intrahepatic duct. Common bile duct dilated and stent placed. She has a history of gallbladder cancer. Presented with obstructive jaundice most likely from external compression of the common bile duct. ERCP was done for therapeutic purpose. There is a smooth stricture in the distal common bile duct, likely from external compression. Sphincterotomy done. Common bile duct dilated. Stent placed without any difficulty. So, we will try and advance her diet. She is requesting more for pain. cc: Rigoberto Castillo MD
[2016-11-08] MEDS: DILAUDID IV PRN ×6 (01:42→21:37)
[2016-11-08] MEDS: TYLENOL PO PRN ×2 (03:16→13:16)
[2016-11-08] MEDS: SODIUM CHLORIDE 0.9% INJ SCH (05:50)
[2016-11-08] MEDS: PROTONIX IV SCH (05:50)
[2016-11-08 06:28] LABS: AGAP 15; ALBUMIN 2.9 g/dL (3.5-5.0); ALKALINE PHOSPHATASE 450 U/L (32-104); BUN 8 mg/dL (8-22); CALCIUM 8.7 mg/dL (8.8-10.2); CHLORIDE 91 mmol/L (98-107); COSMO 263; GOT 42 U/L (10-30); GPT 64 U/L (10-36); POTASSIUM 4.1 mmol/L (3.5-5.1); SODIUM 132 mmol/L (136-145); TCO2 26 mmol/L (25-35); TOTAL BILIRUBIN 2.64 mg/dL (0.20-1.00); TOTAL PROTEIN 7.3 g/dL (6.3-8.3)
[2016-11-08] MEDS: COLACE PO SCH ×2 (10:11→20:08)
[2016-11-08] MEDS: NORVASC PO SCH (10:11)
[2016-11-08] MEDS: PAXIL CR PO SCH (10:11)
[2016-11-08] MEDS: COREG PO SCH ×2 (10:11→20:08)
[2016-11-08] MEDS: SODIUM CHLORIDE 0.9% INJ PRN ×3 (10:17→18:33)
[2016-11-08] MEDS: PHENERGAN IV PRN ×4 (10:18→21:36)
--- NOTE | 2016-11-08 13:15 | PROGRESS NOTE ---
DATE: 11/08/2016 SUBJECTIVE: Ms. Cordon is still in a good deal of pain. She still had not had a bowel movement. I did discuss with her the situation. I am not sure she is aware of the gravity of the situation and the seriousness of it. I told her I am not sure that there is any surgery that is going to correct her problem and that she appears to have metastatic gallbladder cancer. PHYSICAL EXAMINATION: Vital Signs: Temperature was 99.1 degrees, pulse 80, respirations 16, blood pressure 161/79. HEENT: Pupils were equal. Lungs: Clear in all lung pop. Cardiovascular Examination: Regular rhythm and rate without murmurs 3. Abdomen: Tender in the epigastrium. Is and Os: Urine output is about 2-1/2 L. LAB: Reviewed from yesterday, still elevated white count. Creatinine is 0.5. Liver functions seem to be coming down well. AST down to 42, ALT 64, alkaline phosphatase 475. ASSESSMENT AND PLAN: 1. Smooth stricture of distal common bile duct, Most likely from external compression. Sphincterotomy done. Common bile duct dilated. Stent placed. We are trying to get her back on her diet. 2. Constipation. Try and give her something to help her bowels move. 3. We will discuss with oncology our plans. Dr. Jessica Ambrosio is her oncologist. She has metastatic gallbladder carcinoma with known liver metastasis. I will make plans before discharge. She has some biliary obstruction which hopefully is corrected. She has abdominal pain. We will have to figure outpatient medication. I am going to give her some lactulose to see if it will help with her bowels. She is already on Colace. I will increase that to 100 mg twice a day and may consider adding MiraLAX. cc: Rigoberto Castillo MD
[2016-11-08] MEDS: LACTULOSE PO SCH ×2 (14:25→20:08)
[2016-11-08] MEDS: DURAGESIC 25 MICROGM/HR PATCH TD SCH (15:30)
[2016-11-09] MEDS: DILAUDID IV PRN ×8 (00:52→22:51)
[2016-11-09] MEDS: PHENERGAN IV PRN ×8 (00:55→22:51)
[2016-11-09] MEDS: LACTULOSE PO SCH ×2 (08:47→21:20)
[2016-11-09] MEDS: NORVASC PO SCH (08:47)
[2016-11-09] MEDS: PAXIL CR PO SCH (08:47)
[2016-11-09] MEDS: COREG PO SCH ×2 (08:47→21:20)
[2016-11-09] MEDS: COLACE PO SCH ×2 (08:47→21:20)
--- NOTE | 2016-11-09 13:42 | PROGRESS NOTE ---
DATE: 11/09/2016 SUBJECTIVE: Ms. Cordon is sitting up in the hospital bed. She reports her pain is better after having her biliary tree stented. OBJECTIVE/VITAL SIGNS: Temperature 98.7 degrees, heart rate 89, respirations 16 , blood pressure 159/82, O2 saturation 98% on room air. LABS: No new labs for 11/09/2016. PHYSICAL EXAM: Cardiovascular: S1, S2 heard. Regular rate and rhythm. No murmurs, gallops, or rubs. Respiratory: Chest is clear to auscultation bilaterally. Gastrointestinal: Abdomen is soft. She does have some diffuse tenderness. Extremities: Patient has trace bilateral extremity edema. ASSESSMENT AND PLAN: 1. Metastatic gallbladder cancer. Once the patient is discharged, she was asked for a second opinion and will be referred to [facility]. We will also make sure the patient has a follow up with us in our office. Discussed this with the patient. She is agreeable. Our office will set up these appointments. 2. Abdominal pain. Currently relatively well controlled. Improved after stenting. She will continue fentanyl patch. Continue to adjust as needed. 3. Nausea and vomiting. Patient will continue with her current management of antiemetics as needed. 4. Constipation. Lactulose is being adjusted as needed. We are going to sign off for now and let the patient follow as an outpatient as previously mentioned. We will be available as needed. Dictated by REN Caceres for Jessica Ambrosio MD cc: Jessica Ambrosio MD I have seen and examined the patient. I agree with the above A/P. [facility] appt for 2nd opinion set up for the patient as well at her request. Jessica Ambrosio MD> EVERETTD
--- NOTE | 2016-11-09 15:03 | PROGRESS NOTE ---
DATE: 11/09/2016 She is feeling a little better. A little less pain. I explained we probably need to try and find some p.o. pain medicine in preparation of trying to get her home. She wanted to be very, very private in our conversation and just talked to her. Temp 98.9 degrees, pulse 94, respirations 16, blood pressure 155/101.HEENT: Pupils are equal, round. Lungs: Are clear in all lung pop. Cardiovascular: Regular rhythm and rate without murmur or S3. Abdomen: Soft. Skin: Is warm and dry. LAB: Reviewed from . White blood cell count still elevated at 17,040, hematocrit 32, platelet count 295,000. Sodium 132, potassium 4.1, chloride 91, BUN 8, creatinine 0.5. Liver functions coming down. AST 42, ALT 64, ALT 450. Will check them again in the morning. ASSESSMENT AND PLAN: 1. Metastatic gallbladder cancer. The patient asked for a 2nd opinion at [facility]. Will make sure that can be set up. 2. Abdominal pain. She continues the fentanyl patch. She has had a sphincterotomy and the pain seems to be getting better. Liver enzymes seemed to be getting better. 3. Nausea and vomiting is improved. 4. Constipation. She is taking lactulose. So currently fentanyl patch 25 mcg every 72 hours. She is getting the Dilaudid 1 mg IV q.3 hours and I will see if we can try hydrocodone at 10 mg p.o. q.4 hours p.r.n. and see if that will help. cc: Rigoberto Castillo MD
[2016-11-09] MEDS: NORCO-10 PO PRN (21:20)
[2016-11-09] MEDS: PROTONIX IV SCH (23:36)
[2016-11-10] MEDS: DILAUDID IV PRN ×7 (01:39→22:50)
[2016-11-10] MEDS: PHENERGAN IV PRN ×7 (01:40→22:50)
[2016-11-10] MEDS: PROTONIX IV SCH (05:33)
--- NOTE | 2016-11-10 11:33 | PROGRESS NOTE ---
DATE: 11/10/2016 SUBJECTIVE: Ms. Cordon states she is still getting pain, but the interval between pain seems to be a little longer. Her bowels are moving a little better. She does not have much appetite. I think she still wants to try and pursue a 2nd opinion at [facility]. OBJECTIVE: Vital Signs: Temperature 98.3 degrees, pulse 89, respirations 18, blood pressure 173/93. HEENT: The pupils are equal and round. Lungs: Clear in all lung pop. Cardiovascular: Regular rhythm and rate, without murmur or S3. Abdomen: Soft. Skin: Warm and dry. REVIEW OF HISTORY: This is a 56-year-old black female who presented to the ER on 11/04/2016 complaining of abdominal pain, decreased appetite, some nausea and vomiting. Was recently admitted to the hospital and discharged on 10/17/2016. During that admission, she was initially admitted with similar symptoms. Ultimately, the patient was found to have gallbladder cancer with metastasis to the liver and lymph nodes. She was discharged and supposed to follow up with Dr. Ambrosio. The patient states that at that time she had not had made her appointment, when she came to the hospital with more pain. She states that for 2 weeks she has had decreased appetite and abdominal pain, right upper quadrant and epigastric pain, as well. In the ER, was found to have abdominal pain as reported, mild leukocytosis, and a CT of the abdomen and pelvis obtained did show that the patient has progression of metastatic disease, likely from gallbladder cancer. Showed advanced malignancy, probably arising from the gallbladder, involving the liver, periportal and perihepatic lymph nodes. There were also numerous omental masses, as well. This CT performed on the day of admission showed advances of tumor. OTHER PAST MEDICAL HISTORY: Hypertension, hyperlipidemia, anxiety, depression. The patient did have a recent laparoscopic biopsy of omental mass and biopsy of the peritoneum performed by Dr. Obed Donovan. She has had a tonsillectomy. ASSESSMENT AND PLAN: 1. Metastatic gallbladder cancer with very poor prognosis. She wanted to know why we cannot take the gallbladder out and I explained that the cancer has advanced to the point where it would not be helpful. She is having significant abdominal pain. I think a lot of this is related to the sphincter of Oddi and pancreatic duct, and the cancer itself. She had a smooth stricture of distal common bile duct, most likely from external compression. Sphincterotomy done. Common bile duct was dilated. Stent placed without any difficulty. I think the pain is diminishing and we are going to try and find some p.o. medicines that will help and she will be able to tolerate in hopes that she can go home soon. 2. Constipation that is improved. 3. Poor appetite. REVIEW OF ORDERS: Looking over her orders right now, I am going to try and add Remeron in the evening to see if this will help appetite and maybe help her with her sleep. cc: Rigoberto Castillo MD
[2016-11-10] MEDS ORDERED: NS 0 ML ONE (12:47)
[2016-11-10] MEDS: PAXIL CR PO SCH (12:54)
[2016-11-10] MEDS: LACTULOSE PO SCH ×2 (12:54→21:53)
[2016-11-10] MEDS: NORVASC PO SCH (12:54)
[2016-11-10] MEDS: COREG PO SCH ×2 (12:54→21:52)
[2016-11-10] MEDS: SODIUM CHLORIDE 0.9% INJ SCH ×3 (12:54→19:45)
[2016-11-10] MEDS: COLACE PO SCH ×2 (13:54→21:52)
[2016-11-10] MEDS: NORCO-10 PO PRN ×2 (14:29→18:29)
[2016-11-10] MEDS: REMERON PO SCH (21:52)
[2016-11-11] MEDS: NORCO-10 PO PRN ×4 (00:09→23:09)
[2016-11-11] MEDS: DILAUDID IV PRN ×6 (03:01→21:12)
[2016-11-11] MEDS: PHENERGAN IV PRN ×5 (03:01→21:11)
[2016-11-11] MEDS: SODIUM CHLORIDE 0.9% INJ SCH ×2 (05:46→15:59)
[2016-11-11] MEDS: PROTONIX IV SCH (05:46)
[2016-11-11] MEDS: NORVASC PO SCH (09:00)
[2016-11-11] MEDS: COLACE PO SCH ×2 (09:06→22:40)
[2016-11-11] MEDS: PAXIL CR PO SCH (09:06)
[2016-11-11] MEDS: COREG PO SCH ×3 (09:07→22:42)
[2016-11-11] MEDS: LACTULOSE PO SCH ×2 (09:07→22:40)
[2016-11-11] MEDS ORDERED: DURAGESIC 50 MICROGM/HR PATCH TD SCH (12:00)
--- NOTE | 2016-11-11 14:50 | PROGRESS NOTE ---
DATE: 11/11/2016 SUBJECTIVE: She is still hurting quite a bit and she says she hurts every hour. She wants something stronger and she wants IV. Remains afebrile. OBJECTIVE: Vital signs: Temperature 98.7 degrees, pulse 96, respirations 16, blood pressure 150/80. Lungs: Are clear anterior and posterior. Cardiovascular: Regular rhythm and rate without murmur or S3. Abdomen: Soft. She has tenderness in the epigastrium, midabdomen. Skin: Warm and dry. Did not record urine output but does not look volume overloaded. REVIEW OF LAB: From the and creatinine is 0.5, electrolytes were unremarkable, I may repeat those tomorrow. ASSESSMENT AND PLAN: 1. She has metastatic gallbladder cancer. Very poor prognosis. I think she is wanting to get a 2nd opinion but we have had many discussions about this. I do not think there is going to be much in the way of surgical therapy for her. She still in good deal of pain. She has a smooth stricture in the distal common bile duct likely external compression. They did a sphincterotomy. Pain has diminished some but still not controlled on p.o. medicines. 2. Constipation improved. 3. Very poor appetite, poor p.o. intake. Her blood sugars have been in normal range. Looking over her orders she is on fentanyl 25, I think we may need to go up try 50 with that, she is on hydrocodone 10 mg daily and she gets the Dilaudid 1 mg IV q.3 hours and still the pain is not controlled well. cc: Rigoberto Castillo MD
[2016-11-11] MEDS: REMERON PO SCH (22:40)
[2016-11-12] MEDS: DILAUDID IV PRN ×8 (00:30→22:44)
[2016-11-12] MEDS: PHENERGAN IV PRN ×6 (00:30→22:44)
[2016-11-12] MEDS: SODIUM CHLORIDE 0.9% INJ SCH ×2 (06:53→18:42)
[2016-11-12] MEDS: PROTONIX IV SCH (06:53)
[2016-11-12] MEDS: SODIUM CHLORIDE 0.9% INJ PRN ×3 (06:53→13:52)
[2016-11-12] MEDS: PAXIL CR PO SCH (10:01)
[2016-11-12] MEDS: LACTULOSE PO SCH ×2 (10:01→22:45)
[2016-11-12] MEDS: NORVASC PO SCH (10:02)
[2016-11-12] MEDS: COLACE PO SCH ×2 (10:02→22:47)
[2016-11-12] MEDS: COREG PO SCH ×2 (10:02→22:45)
--- NOTE | 2016-11-12 13:33 | PROGRESS NOTE ---
DATE: 11/12/2016 SUBJECTIVE: She says the pain is little better controlled but still significant pain and bowels are moving. She does not have much appetite, does not have much taste for the food. OBJECTIVE: Vital signs: Temp 98.5 degrees, afebrile, pulse 70-97, respirations 28, blood pressure 159/83. Lungs: Are clear in all lung pop. Cardiovascular: Regular rhythm and rate without murmur, S3. Abdomen: Soft. Skin: Is warm and dry. LAB: From reviewed. AST and ALT and alkaline phosphatase are slowly go down and may check some more tomorrow. ASSESSMENT AND PLAN: 1. Metastatic gallbladder cancer, very poor prognosis. I think she is wanting to get 2nd operation or 2nd opinion as she was thinking maybe surgery being option and I have explained to her that I do not think surgery is an option. I think that she had sphincterotomy and help with decompression common bile duct from external compression, pain is still difficult to control and requiring IV opioids at pretty good doses and I think a discussion needs to be had about what the plan and we may be looking at comfort care. 2. Constipation improved. 3. Appetite is poor, poor p.o. intake. Discuss what our plan in and I think that she may decide she wants to go home with hospice. She is inquiring about a 2nd opinion. I have explained to her that this is really a invasive cancer and that we need to make some decisions on treatment fairly quickly. She has discussed with Dr. Ambrosio. cc: Rigoberto Castillo MD
[2016-11-12] MEDS: NORCO-10 PO PRN (15:21)
[2016-11-12] MEDS: REMERON PO SCH (22:45)
[2016-11-13] MEDS: NORCO-10 PO PRN ×3 (00:31→21:03)
[2016-11-13] MEDS: ZOFRAN IV PRN (00:42)
[2016-11-13] MEDS: DILAUDID IV PRN ×7 (00:43→22:03)
[2016-11-13] MEDS: PHENERGAN IV PRN ×6 (03:49→22:03)
[2016-11-13] MEDS: PROTONIX IV SCH (07:37)
[2016-11-13] MEDS: NORVASC PO SCH (08:51)
[2016-11-13] MEDS: PAXIL CR PO SCH (08:51)
[2016-11-13] MEDS: COLACE PO SCH ×2 (08:51→21:06)
[2016-11-13] MEDS: LACTULOSE PO SCH ×3 (08:51→21:08)
[2016-11-13] MEDS: COREG PO SCH ×2 (08:51→21:06)
[2016-11-13] MEDS: SODIUM CHLORIDE 0.9% INJ PRN ×3 (10:24→18:00)
[2016-11-13] MEDS ORDERED: DILAUDID IV ONE (13:14)
--- NOTE | 2016-11-13 13:34 | PROGRESS NOTE ---
DATE: 11/13/2016 SUBJECTIVE: Ms. Cordon is a little more comfortable. She feels like the pain is a little better controlled. She has talked to Dr. Ambrosio and they are planning to pursue some treatment when she goes home. OBJECTIVE: Vital Signs: Temperature 98.3 degrees, pulse 95, respirations 20, blood pressure 136/85. Lungs: Clear in all lung pop. Cardiovascular: Regular rate without murmur or S3. Abdomen: Soft. Skin: Warm and dry. LAB: Sodium 132, potassium 4.1, chloride 91, BUN 8, creatinine 0.5, calcium 8.7. Total bilirubin 2.6, AST 42, ALT 64, alkaline phosphorus 450; so these enzymes have come down. She is feeling better. ASSESSMENT AND PLAN: 1. Gallbladder cancer, metastatic. Hoping she can go home on . She is going to pursue palliative treatment with Dr. Jessica Ambrosio. She understands no surgery is indicated or will be beneficial. 2. Constipation, improved. 3. Appetite is still poor. We will aim to see if we can get her home on . She did not want palliative care assistance at this time. cc: Rigoberto Castillo MD
--- NOTE | 2016-11-13 16:29 | PROGRESS NOTE ---
DATE: 11/13/2016 SUBJECTIVE: Ms. Cordon reports that her pain will come and go. She reports that her pain is relatively well controlled at this time. OBJECTIVE: Vital Signs: Temperature 98.5 degrees. Heart rate 97, respirations 16, blood pressure 123/75, O2 saturation 97% on room air. Cardiovascular: S1-S2 heard, no murmurs, gallops, rubs appreciated. Regular rate and rhythm. Respiratory: Chest is clear auscultation bilaterally. Normal respiratory effort. Gastrointestinal: Some diffuse mild tenderness. No distention. Positive bowel sounds. Musculoskeletal: Trace bilateral extremity edema. LABORATORY: Sodium 132, potassium 4.1, chloride 91, CO2 26, BUN 8, creatinine 0.5, glucose 95. Bilirubin 2.64, AST, ALT 42 and 64 respectively, alkaline phosphatase 450. ASSESSMENT AND PLAN: 1. Metastatic gallbladder carcinoma. Patient would like a 2nd opinion at [facility]. However, the earliest appointment for [facility] is December 07. Recommended that the patient once discharged, comes to our office to discuss starting some sort treatment prior to getting down to [facility]. Surgery is not an option, which has been discussed with the patient previously. The patient does agree to come to our office once she is discharged for further treatment planning. 2. Pain. Currently well controlled. The patient has a fentanyl patch on at 50 mcg and appears to be rather comfortable. She is taking p.o. Malakoff as needed for breakthrough pain. I encouraged her to continue to use the pills versus IV injections as the IV cannot be continued once she is at home. 3. Nausea and vomiting. Currently well controlled with antiemetics. Dictated by REN Caceres for Jessica Ambrosio MD cc: Jessica Ambrosio MD
[2016-11-13] MEDS ORDERED: DURAGESIC 75 MICROGM/HR PATCH TD SCH (16:30)
[2016-11-13] MEDS: REMERON PO SCH (21:06)
[2016-11-14] MEDS: NORCO-10 PO PRN ×4 (00:27→23:10)
[2016-11-14] MEDS: DILAUDID IV PRN ×4 (03:43→20:06)
[2016-11-14] MEDS: PHENERGAN IV PRN ×4 (03:44→20:06)
[2016-11-14] MEDS: PROTONIX IV SCH (05:45)
[2016-11-14] MEDS: PAXIL CR PO SCH (09:14)
[2016-11-14] MEDS: COLACE PO SCH ×2 (09:15→20:12)
[2016-11-14] MEDS: NORVASC PO SCH (09:15)
[2016-11-14] MEDS: LACTULOSE PO SCH ×2 (09:15→20:12)
[2016-11-14] MEDS: COREG PO SCH ×2 (09:15→20:13)
--- NOTE | 2016-11-14 15:51 | PROGRESS NOTE ---
DATE: 11/14/2016 Today Ms. Cordon refers to be doing a little better. Continues to have remarkable discomfort on the right upper quadrant. OBJECTIVE: Vital signs: Blood pressure is 134/69, pulse of 77, respirations 18, temperature 98.2 degrees. General: Ms. Cordon is a 56-year-old female. She was in bed in mild painful distress. HEENT: Mucosa is pink and moist. Chest: Good air entry bilateral. Abdomen: Soft. Mildly tender in the right upper quadrant. Extremities: No pedal edema. JOINTER MACHINE: Patient is awake and alert. LABORATORY DATA: There is not any lab work for today. MEDICATIONS: Have been reviewed. ASSESSMENT: 1. 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 2. Constipation improved. 3. Generalized weakness. 4. Right upper quadrant pain secondary to underlying malignancy. 5. Nausea and vomiting controlled. So, in general I think Ms. Cordon has a very poor prognosis taking into consideration her underlying disease. She continues to be in pain. This has been addressed by her Heme-Onc team. There is also an appointment for her to go to [facility] on December 07. Will reevaluate her tomorrow. If her pain is a lot better we will be able to discharge her for her to followup with her Heme-Onc and with the team in [facility]. cc: David Torres MD
[2016-11-14] MEDS: SODIUM CHLORIDE 0.9% INJ PRN (15:59)
[2016-11-14] MEDS: ZOFRAN IV PRN ×2 (18:51→23:10)
[2016-11-14] MEDS: REMERON PO SCH (20:13)
[2016-11-15] MEDS: DILAUDID IV PRN (02:11)
[2016-11-15] MEDS: PHENERGAN IV PRN (02:11)
[2016-11-15] MEDS: SODIUM CHLORIDE 0.9% INJ PRN (02:11)
[2016-11-15] MEDS: SODIUM CHLORIDE 0.9% INJ SCH (05:36)
[2016-11-15] MEDS: PROTONIX IV SCH (05:36)
[2016-11-15] MEDS: NORCO-10 PO PRN ×2 (05:37→11:36)
[2016-11-15] MEDS: ZOFRAN IV PRN (05:37)
[2016-11-15 06:24] LABS: BASO% 0.1 % (0.0-0.8); EOS# 0.01 X1000 (0.0-0.7); HEMATOCRIT 26.8 % (37.0-47.0); HEMOGLOBIN 8.3 g/dL (12.0-16.0); IMM GRAN# 0.41 X1000 (0.0-0.04); IMM GRAN% 1.3 % (0.0-0.5); LYMPH# 1.89 X1000 (1.2-3.4); LYMPH% 5.9 % (20.5-51.1); MANUAL DIFF NEEDED? YES; MCH 29.9 PG (27-31); MCV 96.4 FL (81-99); MONO# 2.19 X1000 (0.11-0.59); MONO% 6.8 % (1.7-9.3); MPV 9.9 FL (7.4-10.4); NEUT% 85.9 % (42.2-75.2); PLT 396 X1000 (130-400); RBC 2.78 XMIL (4.2-5.4)
[2016-11-15 07:24] LABS: ALBUMIN 2.9 g/dL (3.5-5.0); POTASSIUM 5.9 mmol/L (3.5-5.1); TOTAL BILIRUBIN 2.39 mg/dL (0.20-1.00); TOTAL PROTEIN 7.9 g/dL (6.3-8.3)
[2016-11-15 07:43] LABS: BANDS 14 % (0-1); LYMPHS 4 % (21-51); MONO 4 % (1-9); NRBC 1 % (0-0)
[2016-11-15] MEDS ORDERED: D50W SYRINGE ONE ×2 (07:43→14:56)
[2016-11-15] MEDS ORDERED: D50W SYRINGE IV ONE (07:47)
[2016-11-15] MEDS: NORVASC PO SCH (08:45)
[2016-11-15] MEDS: COREG PO SCH (08:45)
[2016-11-15] MEDS: PAXIL CR PO SCH (08:45)
[2016-11-15] MEDS: LACTULOSE PO SCH (08:45)
[2016-11-15] MEDS: COLACE PO SCH (08:45)
[2016-11-15 09:08] VITALS: BP 106/76
[2016-11-15 10:15] LABS: ALLEN TEST NO; BE -14.4 mmoll (-3.0-3.0); BLOOD TYPE ARTERIAL; DRAW SITE R BRACHIAL; O2(CT) 11.9 mL/dL (15.0-23.0); PCO2(98.6) 22 mmHg (35-45); PO2(98.6) 85 mmHg (60-100); SAMPLE BLOOD; SAO2 98.2 % (95.0-100.0); THB 8.8 g/dL (11.5-17.4); pH(98.6) 7.29 (7.35-7.45)
[2016-11-15 10:16] LABS: MODALITY ROOM AIR
[2016-11-15] MEDS ORDERED: MERREM 500 MG in NS 50 ML IV SCH (11:00)
[2016-11-15] MEDS ORDERED: NS 1,000 ML IV ONE ×2 (11:29→14:00)
[2016-11-15] MEDS ORDERED: NS 1,000 ML ONE (11:34)
[2016-11-15] MEDS ORDERED: NS 1,000 ML IV SCH (11:42)
[2016-11-15 12:04] LABS: URINE CULTURE NEEDED? NO; URINE SOURCE CATH
--- NOTE | 2016-11-15 12:13 | PROGRESS NOTE ---
DATE: 11/15/2016 SUBJECTIVE: Today, Ms. Cordon refers to be doing slightly a little better than yesterday. According to her, her pain level has improved but she continues to be extremely weak. Earlier this morning, the attending nurse called me and said she has a glucose level of 6 and a repeat glucose check was also in the 20s. An amp of D50 was given. The patient was not altered. OBJECTIVE: Vital signs: Blood pressure is 106/76, pulse of 60, respirations 18, temperature 97.9 degrees. Patient is saturating 94% on room air. General: Ms. Cordon is a 56-year-old female. She is in bed. She was not in any remarkable cardiopulmonary distress. HEENT: Mucosa is slightly pale, anicteric and dry. Chest: Good air entry bilateral. A few bibasilar crepitations. Cardiovascular: Regular rate and rhythm. Abdomen: Soft, tender in the right upper quadrant. There is a palpable mass. Extremities: No pedal edema. HUMANE AGENT: Patient is alert. She is oriented. Patient has very poor dentition. LABORATORY DATA: WBC is 32.26, hemoglobin is 8.3, platelet count of 396,000. The patient has 14% of bands on the peripheral smear. Chemistry: Sodium is 134, potassium is 5.9, chloride is 86, bicarbonate is 13 with a gap of 35. Creatinine has gone up to 2.4. AST is 1782. ALT is 669. Alkaline phosphatase is 626. Plasma lactate is 13.6. ABG pH is 7.29, pCO2 is 22, PaO2 is 85. Patient's lactate was 14.6 on the arterial blood gas. Currently patient's medications have been reviewed. She was not on any antibiotics. ASSESSMENT: 1. 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 2. Right upper quadrant pain secondary to underlying malignancy. 3. Obstructive jaundice due to gallbladder malignancy. Patient is status post ERCP with stent placement. 4. Hypotension earlier this morning with signs and symptoms consistent with severe sepsis. We are going to give the patient a bolus of 2 L of normal saline and start her on IV fluids. We are going to move the patient from the floor to the ICU. We already did a blood culture. We will put in a Bellamy catheter to monitor I's and O's. We will start the patient on imipenem. 5. Worsening transaminitis. I think this is a reflection of possible ischemic liver injury from the hypotension. 6. High anion gap metabolic acidosis secondary to lactic acid. 7. Acute kidney injury. PLAN: In general, I think Ms. Cordon's condition is getting worse. She has now developed what seems to be multiorgan failure including acute kidney injury, shock liver, severe leukocytosis with bands. We started her on IV fluid bolus and then continue with drip and started IV antibiotics and will move her from the floor to the ICU. I discussed the critical nature of her illness with her and also with the 2 children that she had in the room a son and a daughter. They said they understood but I did not really get a feel that they understood the extent of her critical disease. We discussed briefly on her wishes. At this point, they want everything to be done. If she needs to be intubated, they want her to go under the ventilator and they want chest. They want everything to be done. Patient continues to be a full code. cc: David Torres MD
[2016-11-15 12:18] LABS: URINE MICRO REVIEW NEEDED? YES
[2016-11-15 12:23] LABS: BILIRUBIN URINE NEGATIVE (NEGATIVE); BLOOD URINE MODERATE (NEGATIVE); COLOR YELLOW; GLUCOSE URINE NEGATIVE (NEGATIVE); LEUKOCYTES URINE NEGATIVE (NEGATIVE); NITRITE URINE NEGATIVE (NEGATIVE); PH URINE 5.5; PROTEIN URINE 100 mg/dL (NEGATIVE); TURBIDITY URINE HAZY (CLEAR); UR EPITHELIAL CELLS >10 /HPF (<10); URINE BACTERIA NEGATIVE /HPF; URINE RBC <10 /HPF (<10); URINE WBC <10 /HPF (<10); UROBILINOGEN URINE NORMAL (NORMAL)
[2016-11-15 13:05] LABS: UR CREAT RANDOM 161.7 mg/dL (11-20); UR SODIUM < 10 mmoll
--- NOTE | 2016-11-15 15:44 | Diag Imaging Result Doc PS360 ---
EXAM: CHEST-PORTABLE INDICATION: POST INTUBATION TECHNIQUE: One view COMPARISON: 10/26/2016 FINDINGS: There is a recently placed ET tube. The tip projects over the trachea and above the bigg at about the T4 level. An electrode pad projects over the lower mediastinum. Inspiration is suboptimal. There is increased central vasculature suggesting at least mild pulmonary venous congestion. Lungs are grossly clear, otherwise. There is no discrete pleural fluid collection or pneumothorax. Cardiac silhouette is grossly unremarkable. IMPRESSION: 1.Recently placed ET tube in place as detailed above. 2.Suggestion of pulmonary venous congestion. Electronically signed by Stu Shukla 11/15/2016 3:41 PM
[2016-11-15 16:08] LABS: ALLEN TEST YES; BLOOD TYPE ARTERIAL; DRAW SITE R RADIAL; METHB 1.5 % (0.0-1.5); O2(CT) 11.5 mL/dL (15.0-23.0); PCO2(98.6) 41 mmHg (35-45); PO2(98.6) 218 mmHg (60-100); SAMPLE BLOOD; SAO2 99.2 % (95.0-100.0); SRATE 14 BPM; TVOL 500 mL
[2016-11-15 16:11] LABS: LACTATE > 20.00 mmoll (0.44-2.22); MODALITY VENTILATOR; pH(98.6) < 6.80 (7.35-7.45)
[2016-11-15] MEDS ORDERED: SODIUM BICARBONATE 8.4% 150 MEQ in D5W 1,000 ML IV SCH (16:21)
[2016-11-15 16:29] LABS: INR 2.1
[2016-11-15 16:31] LABS: BASO% 0.4 % (0.0-0.8); EOS# 0.35 X1000 (0.0-0.7); EOS% 0.7 % (0.0-10.0); HEMATOCRIT 26.7 % (37.0-47.0); HEMOGLOBIN 7.8 g/dL (12.0-16.0); IMM GRAN# 2.33 X1000 (0.0-0.04); IMM GRAN% 4.9 % (0.0-0.5); LYMPH# 5.48 X1000 (1.2-3.4); LYMPH% 11.5 % (20.5-51.1); MANUAL DIFF NEEDED? YES; MCH 30.6 PG (27-31); MCHC 29.2 g/dL (33-37); MCV 104.7 FL (81-99); MONO# 3.09 X1000 (0.11-0.59); MONO% 6.5 % (1.7-9.3); MPV 10.4 FL (7.4-10.4); PLT 286 X1000 (130-400); RBC 2.55 XMIL (4.2-5.4)
[2016-11-15 16:34] LABS: PROTIME 23.1 Seconds (9.2-11.7)
[2016-11-15 16:47] LABS: BANDS 8 % (0-1); LYMPHS 16 % (21-51); MONO 10 % (1-9)
--- NOTE | 2016-11-15 17:03 | PROGRESS NOTE ---
DATE: 11/15/2016 UPDATE PROGRESS NOTE: This afternoon we were called on a CAT call for Ms. Pizano. She had arrested with initial rhythm of alexys down into asystole. CPR was started and after about 5-10 minutes of resuscitation with CPR, epinephrine, and other ACLS medication, pulse , there was a return of spontaneous circulation and the patient was transferred subsequently to the ICU. After ROSC, I discussed the gravity of the case with the entire family members and they were in agreement that the patient be transferred to the ICU. About an hour later in the ICU, patient went back into alexys down to asystole, and patient had another round of CPR, maybe for about a minute or 2, and we had return of spontaneous circulation, but it was very feeble. An ABG done showed pH of 6.80, a PaO2 of 218, a PCO2 of 41. A lactate was more than 20.0. After the ROSC, I discussed again with the family members, and at that point they agreed that if the patient coded again we should not do any more CPR, and they would not want any more interventions to be done. At about 4:35 the nurses notified me again that the patient has alexys down and actually has no pulse, and the family members have been asked to go and see the patient before we pronounce her. Critical time spent has been an hour. Of note: At this time, patient has had about 3-4 L of boluses of normal saline. Also had boluses of dextrose. I think she just has an overwhelming sepsis with ascending cholangitis that ended up with overwhelming multi organ failure. cc: David Torres MD MTDJoan
[2016-11-15 17:09] LABS: ALBUMIN 2.2 g/dL (3.5-5.0); CALCIUM 7.9 mg/dL (8.8-10.2); TOTAL BILIRUBIN 2.29 mg/dL (0.20-1.00); TOTAL PROTEIN 5.7 g/dL (6.3-8.3)
[2016-11-15 17:10] LABS: POTASSIUM 6.5 mmol/L (3.5-5.1)
[2016-11-15 17:27] LABS: CK INDEX 3.2 (0.0-2.5); CK-MB 60.8 ng/mL (0.0-5.0)
--- NOTE | 2016-11-16 16:10 | DISCHARGE SUMMARY ---
ADMISSION DATE: 11/04/2016 DISCHARGE DATE: 11/15/2016 TIME OF : 1635 hours. CONSULTATIONS DURING THIS ADMISSION: 1. GI was consulted. Patient was seen by Dr. Hummel. 2. Hem/Onc was consulted. Patient was seen by Dr. Ambrosio. 3. Surgery was consulted. INVASIVE PROCEDURE DONE DURING THIS ADMISSION: Sphincterectomy, common bile duct dilation and stent placement was done by Dr. Horton. IMAGING STUDIES OF SIGNIFICANCE: 1. CT scan of the abdomen and pelvis was done and does show significant progression of the known gallbladder mass, lymphadenopathy, metastatic liver lesion, omental implants, and short interval since the previous study. There is also slight worsening of intrahepatic biliary dilation indicating biliary obstruction at zheng hepatis. 2. Chest x-ray this morning shows pulmonary venous congestion. ADMISSION DIAGNOSES: 1. Metastatic gallbladder cancer. 2. Nausea and vomiting. 3. Mild fluid volume depletion. 4. Hypertension. 5. Depression. DIAGNOSES AT THE TIME OF : 1. Multi organ failure. 2. Overwhelming sepsis with possible ascending cholangitis. 3. Severe lactic acidosis. 4. Suspected gallbladder cancer with metastasis to liver and omentum with CT scan showing worsening. 5. Obstructive jaundice due to gallbladder malignancy status post endoscopic retrograde cholangiopancreatography with stent placement and sphincterectomy. 6. Acute kidney injury. 7. Shock liver. PRESENTING COMPLAINT: Nausea, vomiting, abdominal pain. HISTORY OF PRESENTING COMPLAINT: Ms. Cordon was a 56-year-old who was discharged from the hospital end of September after being diagnosed with gallbladder cancer. Patient presented at this time because of nausea vomiting, initially evaluated and CT scan did show hepatic biliary obstruction. Patient was admitted for further medical care. Patient was evaluated by GI and decision was made to put in a stent in the CBD because of stricture. During the hospital course, my understanding was that patient wanted to go to [facility] and a plan was arranged by the GI team for her to see the liver specialist on 12/07/2016. However, this morning the patient was found to be in more discomfort. Lab work did show that she had severe metabolic acidosis due to lactic acids, became hypotensive and we suspected that she was septic, so we transferred her to the ICU, however there was no bed and while waiting she coded on the floor and had to resuscitated. The patient was transferred to the ICU ultimately, had another episode of cardiac arrest about two times, and eventually the patient made her DNR/DNI. The patient eventually demised at 1435 hours upon multiple attempts to resuscitate her. Patient succumbed to overwhelming sepsis, multi organ failure, shock liver, acute kidney injury all being driven by her underlying metastatic bladder cancer. TIME SPENT FOR DISCHARGE: 38 minutes. cc: David Torres MD
== END 2016-11-15 16:25 | disposition expired ==
LOC: ED 20:06 → 4N 11-04 02:38 → SUATTDRO 11-04 02:38 → ICU 11-15 15:09
PROVIDERS: ATTEND Internal Medicine
PROC: EN.ERCP (2016-11-06 16:32)